=== PATIENT | male | born 1945 | race Caucasian/White ===

== ENCOUNTER 2018-09-17 08:50 | Day surgery (SDC) | payer OTHER, SELFPAY ==
[~2018-09-17] VITALS: Ht 175.3 cm; Wt 102.4 kg
[~2018-09-17 08:50] MED LIST: ALBUTEROL UPDRAFT; ASPI81CH PO; ATOR20 PO; CARB200 PO; DOCU100 PO; EYE VITAMIN PO; FISH1000 PO; Flonase 0.05% N16 GM; GABA600 PO; LISI5 PO; Naprosyn250 MG PO; Norco 5-325 Ta1 EACH PO; TIOT18 INH
--- NOTE | 2018-09-17 09:27 | NUR ---
History, Chart, Medications and Allergies reviewed before start of procedure. Patient confirms NPO status and agrees with scheduled surgery. Patient reports completing Chlorhexadine shower X2 prior to admission to hospital. Lungs clear T/O to Auscultation. Pre-Op teaching done. Pt verbalizes understanding.
[2018-09-17] MEDS ORDERED: INCRUSE ELLI62.5 MCG INH (09:43)
[2018-09-17] MEDS ORDERED: LORATADINE10 MG PO (09:43)
--- NOTE | 2018-09-17 10:05 | NUR ---
TRACKER CARD EXPLAINED TO , OPPORTUNITY FOR QUESTIONS PROVIDED. PATIENT'S IS EXELLENT AT LIP READING AND HAS DEMONSTRATED VERY GOOD UNDERSTANDING ALONG THE WHOLE ADMIT PROCESS. STATES THAT PATIENT AND SHE DO NOT LIKE THE OFF SITE INTERPRETERS VIA LAPTOP AND THE PATIENT PREFERS THAT WE DO NOT USE IT. PATIENT ABLE TO COMMUNICATE VERY WELL WITH HER SPOUSE AND INTERACTION HAS BEEN EASY AND COMMUNICATION WITHOUT DIFFICULTIES.
--- NOTE | 2018-09-17 10:23 | NUR ---
PATIENT UP FOR UNMEASURED VOID WITH RN AND ASSISTANCE VIA WC.
--- NOTE | 2018-09-17 12:01 | NUR ---
09/17/18 1201 Pricilla Marte PT USED RESTOOM PRIOR TO ENTERING OR.
[2018-09-17 15:05] LABS: PCO2 Arterial 61.4 mmHg (35-45); PO2 Arterial 102 mmHg (80-100)
--- NOTE | 2018-09-17 16:40 | NUR ---
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
--- NOTE | 2018-09-17 17:12 | NUR ---
PT TO PACU 1425 FT PLACED PT RESP SHALLOW AT 16 NON REPONSIVE TO VERBAL OR TOUCH STIMULI 1443 BIOX DROPS TO 88 RESP MORE SHALLOW STILL AT [address] TERRY NEW ORDERS TO CALL RT FOR BI-PAP . 1448 BI PAP STARTED . RT CALLED WITH CRITICAL PH RESULT OF 7.2 DR TERRY AWARE NO NEW ORDERS 1500 PT STARTED MOVING ABOUT LIFTED HEAD OFF PILLOW THEN AT 1520 PT WITH SHAKE AND NOD OF HEAD ANSWERED SEVERAL QUESTIONS I HAD WRITTEN A NOTE BIPAP OFF AT 15 30 . PT ON 2 L N/C BIOX AT 93 RESP E/U SEE FLOWSHEET
--- NOTE | 2018-09-17 17:45 | NUR ---
PT HAD FEW BITES OF FOOD HAD SOME MILD NAUSEA JENNIFER LIQUIDS ONLY OFFERED NAUSEA MEDS PT DECLINED
[2018-09-17] MEDS ORDERED: CARB200 PO (18:15)
--- NOTE | 2018-09-17 18:30 | NUR ---
PT OOB TO BSC TO TRY AND VOID UNABLE TO GO PVR 71 ML HELPED PT BACK INTO BED WILL TRY AGAIN IN A FEW HOURS
[2018-09-18 05:12] LABS: BASOPHILS ABSOLUTE AUTO 0.02 K/mm3 (0.00-0.23); BASOPHILS PERCENT AUTO 0 % (0-2); EOSINOPHILS ABSOLUTE AUTO 0.06 K/mm3 (0.00-0.68); EOSINOPHILS PERCENT AUTO 1 % (0-6); Hematocrit 36.3 % (37.0-53.0); Hemoglobin 12.3 g/dL (13.5-17.5); IMMATURE GRAN ABSOLUTE AUTO 0.03 K/mm3 (0.00-0.10); IMMATURE GRAN PERCENT AUTO 0 % (0-1); LYMPHOCYTES PERCENT AUTO 15 % (21-46); MONOCYTES ABSOLUTE AUTO 0.69 K/mm3 (0.16-1.47); MONOCYTES PERCENT AUTO 7 % (4-13); Mean Corpuscular HGB 32.6 pg (26.0-34.0); Mean Corpuscular HGB Conc 33.9 g/dL (31.5-36.5); Mean Corpuscular Volume 96 fL (80-100); Mean Platelet Volume 9.3 fL (9.1-12.4); NEUTROPHILS PERCENT AUTO 77 % (41-73); Platelet Count 185 K/mm3 (150-400); RDW Coefficient Variation 12.4 % (11.7-14.2); RDW Standard Deviation 43.8 fL (35.1-46.3); Red Blood Cell Count 3.77 M/mm3 (4.30-5.90)
[2018-09-18 05:33] LABS: Anion Gap 6 mmol/L (6-16); Blood Urea Nitrogen 13 mg/dL (8-24); Bun/Creatinine Ratio 13.8 (12.0-20.0); CO2, Blood 26 mmol/L (21-32); Calcium, Blood 7.7 mg/dL (8.5-10.1); Chloride, Blood 97 mmol/L (98-108); Creatinine, Blood 0.94 mg/dL (0.60-1.20); Glomerular Filtration Rate >60 (60-); Glucose, Blood 104 mg/dL (70-99); Magnesium, Blood 1.7 mg/dL (1.6-2.4); Potassium, Blood 4.6 mmol/L (3.5-5.5); Sodium, Blood 129 mmol/L (136-145)
[2018-09-18] MEDS ORDERED: OXYC5 PO (15:42)
[2018-09-18] MEDS ORDERED: ASPI325 PO (15:46)
--- NOTE | 2018-09-18 18:30 | NUR ---
BLADDER SCAN 160, PT REP PELVIC PAIN/PRESSURE AND REQ STRAIGHT CATH. STRAIGHT CATH 350 MLS URINE OUTPUT. SAMPLE SENT FOR UTI
[2018-09-18 18:49] LABS: Source, Urine Catheter
[2018-09-18 18:52] LABS: Bilirubin, Urine Neg (Neg); Blood, Urine Neg (Neg); Glucose Qualitative, Urine Neg (Neg); Ketones, Urine 1+ (Neg); Leukocyte Esterase, Urine 1+ (Neg); Nitrite, Urine Neg (Neg); Protein, Urine 2+ (Neg); Specific Gravity, Urine 1.015 (1.003-1.022); Urobilinogen, Urine 1+ (Normal)
[2018-09-18 19:07] LABS: Appearance, Urine Clear (Clear); Color, Urine Yellow (P-Yellow)
[2018-09-18 19:08] LABS: Red Blood Cells, Urine 0-2 /hpf (0-2)
[2018-09-18 19:09] LABS: Bacteria Few /hpf; Squamous Epithelial Cells Rare /hpf (Few)
--- NOTE | 2018-09-18 19:50 | NUR ---
SHIFT SUMMARY PT A&OX4, HEARING IMPAIRED, WHITE BOARD AT BEDSIDE FOR COMMUNICATION WHEN IS NOT AT BEDSIDE. IS ALSO HEARING IMPAIRED BUT CAN READ LIPS AND COMMUNICATE VERBALLY. POD#1 R TSA AQUACEL CDI, IMMOBILIZER IN PLACE. PAIN MANAGED PER EMAR. JENNIFER PO, DENIES N&V. AMB 2 PP W/GB TO BRP AND IN ROOM. UNABLE TO VOID; BLADDER SCANNED X2, AMB TO BRP TO TRY TO VOID X4, STRAIGHT CATH 350 MLS AT 1830; URINE SAMPLE SENT. REPORT GIVEN TO JERI RODRIGUEZ.
--- NOTE | 2018-09-19 02:03 | NUR ---
RN NOTIFIED OF BLADDER SCAN AMOUNT AND THAT PATIENT COULDNT VOID. GOT HIM UP TO A BSC AND HAND HIM STAND AT BEDSIDE WITH URINAL. GAVE WARM COMPRESS ON BLADDER.
--- NOTE | 2018-09-19 04:44 | NUR ---
SHIFT SUMMARY: PT POD #2 FOR RT TSA. A&O X4, VS WNL. PT HEARING IMPAIRED, USING WHITEBOARD LOCATED ON BEDSIDE TABLE TO COMMUNICATE. PT DENIES N/T IN EXTREMITIES AND CAN WIGGLE FINGERS. CAP REFILL WNL. RIGHT SHOULDER IMMOBILZER IN PLACE. PAIN MANAGED WITH TORADOL, TYLENOL AND 5MG OXY PER EMAR. PT UNABLE TO VOID T/O SHIFT, DESPITE ATTEMPTING IN URINAL MULTIPLE TIMES. BLADDER SCAN SHOWED >200. PER ORDERS, STRAIGHT CATHETER INSERTED AT APPROX 0400 WITH A TOTAL OF 400 ML OUT. FLUIDS INFUSING. WHEEZING HEARD UPON AUSCULTATION; O2 SATS STABLE ON RA. PT DENIES FEELING SOB.
--- NOTE | 2018-09-19 12:10 | NUR ---
BLADDER SCAN 222
[2018-09-19 19:04] LABS: Anion Gap 7 mmol/L (6-16); Blood Urea Nitrogen 19 mg/dL (8-24); Bun/Creatinine Ratio 18.3 (12.0-20.0); CO2, Blood 24 mmol/L (21-32); Chloride, Blood 92 mmol/L (98-108); Creatinine, Blood 1.04 mg/dL (0.60-1.20); Glomerular Filtration Rate >60 (60-); Glucose, Blood 101 mg/dL (70-99); Potassium, Blood 4.5 mmol/L (3.5-5.5); Sodium, Blood 123 mmol/L (136-145)
--- NOTE | 2018-09-19 19:42 | NUR ---
SHIFT SUMMARY PT A&OX4, VSS, POD2 R TSA, AQUACEL CDI, IMMOBILIZER ON, NWB, CIRC CHKS WNL. PT AND HEARING IMPAIRED. WHITE BOARD TO COMMUNICATE WITH PT; CAN READ LIPS AND WILL SIGN TO PT. BOTH ARE PLEASANT AND COOPERATIVE. PT VOIDED 850 AND HAD 2 SMALL BMS TODAY. AMB 2 MOD ASSIST W/GB TO BRP. JENNIFER PO, DENIES N&V. REPORT GIVEN TO JERI RODRIGUEZ
--- NOTE | 2018-09-19 20:30 | NUR ---
PT GIVEN OPTION OF ACCESSING AREA OPERATIONS DIRECTOR USING COMPUTER. PT AGREEING. WILL LOCATE AREA OPERATIONS DIRECTOR AND USE FOR FURTHER COMMUNICATION.
--- NOTE | 2018-09-19 22:25 | NUR ---
UNABLE TO CONNECT TO WIFI FOR FURNACE REPAIRER HELPER. CALIBRATION SPECIALIST IN ROOM ATTEMPTING TO FIX IT. PT INFORMED OF SITUATION. USING WHITEBOARD TO COMMUNICATE AT THIS TIME.
--- NOTE | 2018-09-20 06:08 | NUR ---
PT WHEEZING AND REPORTS FEELING SOB AFTER GETTING FROM BATHROOM TO CHAIR. RESPIRATORY THERAPY NOTIFIED. PT AGREES TO BREATHING TX.
--- NOTE | 2018-09-20 06:09 | NUR ---
SHIFT SUMMARY: PT POD #3 FOR RT TSA. A&O X4, VS WNL. PAIN MANAGED WITH TORADOL T/O SHIFT. OOB TO BSC AND BRP WITH 1 ASSIST AND GB. PT ENCOURAGED TO VOID FREQ. VOID X1 WITH A TOTAL OF 300 ML OUTPUT FOR SHIFT. WHEEZING NOTED UPON EXERTION. RESPIRATORY TX PRN. USING WHITEBOARD TO COMMUNICATE WITH PT INTERPERTER VIA LAPTOP IS CURRENTLY UNAVAILABLE D/T LACK OF INTERNET CONNECTION. PT IS AWARE. PT CURRENTLY SITTING IN CHAIR AND REPORTS FEELING COMFORTABLE. CALL LIGHT IN REACH.
--- NOTE | 2018-09-20 11:58 | NUR ---
PATIENT HAS BEEN CLEARED FROM DR. CHRISTIAN'S STANDPOINT. CURRENTLY WE ARE AWAITING DR. CORCORAN TO ASSESS THE PATIENT AND CLEAR HIM FROM ORTHOPEDIC STANDPOINT. PATIENT'S FAMILY AWARE THAT WE ARE WAITING FOR THE DOCTOR AT THIS TIME.
[2018-09-20] MEDS ORDERED: TAMS.4ER PO (16:38)
[2018-09-20] MEDS ORDERED: ALBU3IS INH (16:39)
--- NOTE | 2018-09-20 17:26 | NUR ---
DISCHARGE SUMMARY PATIENT INSTRUCTIONS GIVEN TO THE PATIENT. HIS MEDICATIONS WERE SENT WITH HIM. ALL PRINT OUTS EXPLAINED TO AND PATIENT. NO ACUTE CONCERNS AT TIME OF DISCHARGE. EXPLAINED THE PATIENT'S WEIGHT BEARING STATUS AND NOT TO LIFT.
== END 2018-09-20 17:17 | disposition home or self-care (01) ==
LOC: ORSCMMR 08:50 → EDSTATUS 10:45 → PRE IP 10:45 → SURS 16:27 → ORSCMMR 09-20 17:17
PROVIDERS: Internal Medicine; Orthopaedic Surgery
PROC: 0RRJ0J6 Replacement of Right Shoulder Joint with Synthetic Substitute, Humeral Surface, Open Approach (ICD-10-PCS; principal; 2018-09-17 10:45)
DX: M19.011 Primary osteoarthritis, right shoulder (principal); M75.121 Complete rotator cuff tear or rupture of right shoulder, not specified as traumatic; I10 Essential (primary) hypertension; J44.9 Chronic obstructive pulmonary disease, unspecified; E66.9 Obesity, unspecified; Z68.33 Body mass index [BMI] 33.0-33.9, adult; Z79.899 Other long term (current) drug therapy; Z79.82 Long term (current) use of aspirin
CPT/HCPCS: 36415; 36600; 51701; 73030; 76770; 80048; 81001; 82803; 83735; 83880; 85025; 87086; 88300; 94640; 94660; 94760; 97110; 97116; 97161; 97165; 97530; 97535; C1776; J0171; J0690; J0735; J1100; J1885; J1940; J2250; J2405; J2704; J2710; J2795; J3010; J7030; J7120

== ENCOUNTER 2019-02-12 14:35 | Emergency (ER) | payer OTHER ==
[~2019-02-12] VITALS: Ht 175.3 cm; Wt 102.1 kg
[~2019-02-12 14:35] MED LIST changes: +ALBU3IS INH; +ASPI325 PO; +INCRUSE ELLI62.5 MCG INH; +LORATADINE10 MG PO; +OXYC5 PO; +TAMS.4ER PO
== END 2019-02-12 18:27 | disposition home or self-care (01) ==
LOC: ER 14:35
DX: L89.312 Pressure ulcer of right buttock, stage 2 (principal); Z79.82 Long term (current) use of aspirin; Z79.899 Other long term (current) drug therapy; Z87.891 Personal history of nicotine dependence
CPT/HCPCS: 90471; 90714; 99283-25

== ENCOUNTER 2019-07-09 06:20 | Day surgery (SDC) | payer OTHER ==
[~2019-07-09] VITALS: Ht 175.3 cm; Wt 100.5 kg
--- NOTE | 2019-07-09 07:19 | NUR ---
07/09/19 0719 Latoya Haile CALL LIGHT WITHIN REACH. FAMILY AND FIELD ARTILLERY OFFICER AT BEDSIDE.
== END 2019-07-09 09:59 | disposition home or self-care (01) ==
LOC: ORSCSDS 06:20
DX: G56.01 Carpal tunnel syndrome, right upper limb (principal); G56.21 Lesion of ulnar nerve, right upper limb; I10 Essential (primary) hypertension; Z87.891 Personal history of nicotine dependence; J45.909 Unspecified asthma, uncomplicated; Z79.899 Other long term (current) drug therapy; Z79.82 Long term (current) use of aspirin
CPT/HCPCS: 93005; 93010; J0171; J0690; J1100; J1885; J2250; J2405; J2704; J3010; J7120

== ENCOUNTER 2019-10-19 22:49 | Emergency (ER) | payer OTHER ==
[~2019-10-19] VITALS: Ht 175.3 cm; Wt 102.1 kg
[~2019-10-19 22:49] MED LIST changes: -ASPI325 PO; +ASPIR 8181 M1 PO
[2019-10-19] MEDS ORDERED: FURO20 (23:06)
[2019-10-19 23:16] LABS: BASOPHILS ABSOLUTE AUTO 0.09 K/mm3 (0.00-0.23); BASOPHILS PERCENT AUTO 1 % (0-2); EOSINOPHILS ABSOLUTE AUTO 0.59 K/mm3 (0.00-0.68); EOSINOPHILS PERCENT AUTO 6 % (0-6); Hematocrit 37.5 % (37.0-53.0); Hemoglobin 12.7 g/dL (13.5-17.5); IMMATURE GRAN ABSOLUTE AUTO 0.07 K/mm3 (0.00-0.10); IMMATURE GRAN PERCENT AUTO 1 % (0-1); LYMPHOCYTES ABSOLUTE AUTO 2.86 K/mm3 (0.84-5.20); LYMPHOCYTES PERCENT AUTO 29 % (21-46); MONOCYTES ABSOLUTE AUTO 1.08 K/mm3 (0.16-1.47); MONOCYTES PERCENT AUTO 11 % (4-13); Mean Corpuscular HGB 32.2 pg (26.0-34.0); Mean Corpuscular HGB Conc 33.9 g/dL (31.5-36.5); Mean Corpuscular Volume 95 fL (80-100); NEUTROPHILS ABSOLUTE AUTO 5.05 K/mm3 (1.96-9.15); NEUTROPHILS PERCENT AUTO 52 % (41-73); Platelet Count 175 K/mm3 (150-400); RDW Coefficient Variation 12.5 % (11.7-14.2); RDW Standard Deviation 43.4 fL (35.1-46.3); Red Blood Cell Count 3.95 M/mm3 (4.30-5.90); White Blood Cell Count 9.74 K/mm3 (4.00-11.30)
[2019-10-19 23:34] LABS: Alanine Aminotransfer (ALT/SGP 22 U/L (12-78); Albumin, Blood 3.4 g/dL (3.4-5.0); Albumin/Globulin Ratio 1.1 (0.8-1.8); Alk Phos 164 U/L (50-136); Anion Gap 9 mmol/L (6-16); Aspartate Aminotrans (AST/SGOT 15 U/L (12-37); Bilirubin, Total 0.4 mg/dL (0.1-1.0); Blood Urea Nitrogen 14 mg/dL (8-24); Bun/Creatinine Ratio 14.1 (12.0-20.0); CO2, Blood 23 mmol/L (21-32); Calcium, Blood 7.6 mg/dL (8.5-10.1); Chloride, Blood 99 mmol/L (98-108); Globulin, Blood 3.2 g/dL (2.2-4.0); Glomerular Filtration Rate >60 (60-); Glucose, Blood 97 mg/dL (70-99); Potassium, Blood 3.7 mmol/L (3.5-5.5); Sodium, Blood 131 mmol/L (136-145); Total Protein, Blood 6.6 g/dL (6.4-8.2)
[2019-10-20 00:02] LABS: Troponin I <0.015 ng/mL (0.000-0.040)
== END 2019-10-20 01:46 | disposition home or self-care (01) ==
LOC: ER 22:49
PROVIDERS: Emergency Medicine
DX: R42 Dizziness and giddiness (principal); Z87.891 Personal history of nicotine dependence; Z79.899 Other long term (current) drug therapy; Z79.51 Long term (current) use of inhaled steroids
CPT/HCPCS: 80053; 84484; 85025; 93005; 93010; 99284-25; J7120

== ENCOUNTER 2020-02-02 08:59 | Emergency (ER) | payer OTHER ==
[~2020-02-02] VITALS: Ht 175.3 cm; Wt 99.8 kg
[~2020-02-02 08:59] MED LIST changes: +FURO20
[2020-02-02 09:40] LABS: BASOPHILS ABSOLUTE AUTO 0.04 K/mm3 (0.00-0.23); BASOPHILS PERCENT AUTO 0 % (0-2); EOSINOPHILS ABSOLUTE AUTO 0.02 K/mm3 (0.00-0.68); EOSINOPHILS PERCENT AUTO 0 % (0-6); Hematocrit 40.4 % (37.0-53.0); Hemoglobin 13.9 g/dL (13.5-17.5); IMMATURE GRAN ABSOLUTE AUTO 0.08 K/mm3 (0.00-0.10); IMMATURE GRAN PERCENT AUTO 1 % (0-1); LYMPHOCYTES ABSOLUTE AUTO 0.58 K/mm3 (0.84-5.20); LYMPHOCYTES PERCENT AUTO 4 % (21-46); MONOCYTES ABSOLUTE AUTO 1.44 K/mm3 (0.16-1.47); MONOCYTES PERCENT AUTO 9 % (4-13); Mean Corpuscular HGB Conc 34.4 g/dL (31.5-36.5); Mean Corpuscular Volume 93 fL (80-100); Mean Platelet Volume 8.8 fL (9.1-12.4); NEUTROPHILS ABSOLUTE AUTO 14.18 K/mm3 (1.96-9.15); NEUTROPHILS PERCENT AUTO 87 % (41-73); Platelet Count 179 K/mm3 (150-400); RDW Coefficient Variation 12.3 % (11.7-14.2); RDW Standard Deviation 42.5 fL (35.1-46.3); Red Blood Cell Count 4.34 M/mm3 (4.30-5.90); White Blood Cell Count 16.34 K/mm3 (4.00-11.30)
[2020-02-02 10:29] LABS: Alanine Aminotransfer (ALT/SGP 27 U/L (12-78); Albumin, Blood 3.3 g/dL (3.4-5.0); Albumin/Globulin Ratio 0.7 (0.8-1.8); Alk Phos 172 U/L (50-136); Anion Gap 8 mmol/L (6-16); Aspartate Aminotrans (AST/SGOT 17 U/L (12-37); Bilirubin, Total 0.9 mg/dL (0.1-1.0); Blood Urea Nitrogen 12 mg/dL (8-24); Bun/Creatinine Ratio 13.3 (12.0-20.0); CO2, Blood 26 mmol/L (21-32); Calcium, Blood 8.4 mg/dL (8.5-10.1); Chloride, Blood 87 mmol/L (98-108); Globulin, Blood 4.7 g/dL (2.2-4.0); Glomerular Filtration Rate >60 (60-); Glucose, Blood 99 mg/dL (70-99); Potassium, Blood 4.8 mmol/L (3.5-5.5); Sodium, Blood 121 mmol/L (136-145)
[2020-02-02 10:30] LABS: Troponin I <0.015 ng/mL (0.000-0.040)
[2020-02-02 10:39] LABS: Source, Urine Clean Catch
[2020-02-02 10:51] LABS: Bilirubin, Urine Neg (Neg); Blood, Urine Neg (Neg); Glucose Qualitative, Urine Neg (Neg); Ketones, Urine 3+ (Neg); Leukocyte Esterase, Urine Neg (Neg); Nitrite, Urine Neg (Neg); Protein, Urine 1+ (Neg); Urobilinogen, Urine NORM (Normal)
[2020-02-02 10:54] LABS: Appearance, Urine Clear (Clear); Color, Urine Yellow (P-Yellow)
== END 2020-02-02 12:21 | disposition home or self-care (01) ==
LOC: ER 08:59
PROVIDERS: Physician Assistant
DX: R53.1 Weakness (principal); Z91.81 History of falling; J44.9 Chronic obstructive pulmonary disease, unspecified; I10 Essential (primary) hypertension; E78.00 Pure hypercholesterolemia, unspecified; G40.909 Epilepsy, unspecified, not intractable, without status epilepticus; H91.90 Unspecified hearing loss, unspecified ear; Z79.82 Long term (current) use of aspirin; Z79.899 Other long term (current) drug therapy; Z87.891 Personal history of nicotine dependence
CPT/HCPCS: 36415; 71045; 74177; 80053; 84484; 85025; 93005; 93010; 96360; 99285-25; J7030; Q9967

== ENCOUNTER 2021-07-16 16:51 | Emergency (ER) | payer OTHER ==
[~2021-07-16] VITALS: Ht 175.3 cm; Wt 102.1 kg
[~2021-07-16 16:51] MED LIST changes: +ALBU2.5V5 INH; +ASCO500 PO; -EYE VITAMIN PO; +LEVE500 PO; +Loratadine10 MG PO; +METAMUCIL POWD575 GM PO; +MULTI VITAMIN1 EACH PO; +OMEP20ER PO; +POLY500 PO; +POTA10T PO; +UMECLIDINIUM INH
[2021-07-16 17:27] LABS: BASOPHILS ABSOLUTE AUTO 0.04 K/mm3 (0.00-0.23); BASOPHILS PERCENT AUTO 1 % (0-2); EOSINOPHILS ABSOLUTE AUTO 0.08 K/mm3 (0.00-0.68); EOSINOPHILS PERCENT AUTO 1 % (0-6); Hematocrit 41.1 % (37.0-53.0); Hemoglobin 14.2 g/dL (13.5-17.5); IMMATURE GRAN ABSOLUTE AUTO 0.07 K/mm3 (0.00-0.10); IMMATURE GRAN PERCENT AUTO 1 % (0-1); LYMPHOCYTES PERCENT AUTO 5 % (21-46); MONOCYTES ABSOLUTE AUTO 1.01 K/mm3 (0.16-1.47); MONOCYTES PERCENT AUTO 12 % (4-13); Mean Corpuscular HGB 33.2 pg (26.0-34.0); Mean Corpuscular HGB Conc 34.5 g/dL (31.5-36.5); Mean Corpuscular Volume 96 fL (80-100); Mean Platelet Volume 9.2 fL (9.1-12.4); NEUTROPHILS ABSOLUTE AUTO 7.14 K/mm3 (1.96-9.15); NEUTROPHILS PERCENT AUTO 82 % (41-73); Platelet Count 167 K/mm3 (150-400); RDW Coefficient Variation 12.8 % (11.7-14.2); RDW Standard Deviation 45.2 fL (35.1-46.3); Red Blood Cell Count 4.28 M/mm3 (4.30-5.90); White Blood Cell Count 8.74 K/mm3 (4.00-11.30)
[2021-07-16 17:45] LABS: Source, Urine Clean Catch
[2021-07-16 17:56] LABS: Bun/Creatinine Ratio 12.3 (12.0-20.0); Calcium, Blood 8.8 mg/dL (8.5-10.1); Creatinine, Blood 1.22 mg/dL (0.60-1.20); Potassium, Blood 4.5 mmol/L (3.5-5.5)
[2021-07-16] MEDS ORDERED: GABA300 PO (18:01)
[2021-07-16] MEDS ORDERED: BREO ELLIPTA 11 EAC1 INH (18:02)
[2021-07-16 18:05] LABS: Appearance, Urine Clear (Clear); Bilirubin, Urine Neg (Neg); Blood, Urine Neg (Neg); Color, Urine Yellow (P-Yellow); Glucose Qualitative, Urine Neg (Neg); Ketones, Urine Neg (Neg); Leukocyte Esterase, Urine Neg (Neg); Nitrite, Urine Neg (Neg); Protein, Urine Neg (Neg); Urobilinogen, Urine NORM (Normal); pH, Urine 6.5 (5.0-8.0)
[2021-07-16 18:34] LABS: Influenza A, PCR NEGATIVE (NEGATIVE); Influenza B, PCR NEGATIVE (NEGATIVE); Resp Syncytial Virus, PCR NEGATIVE (NEGATIVE)
[2021-07-16 18:40] LABS: SARS-Cov-2 (COVID-19) PCR, MMC POSITIVE (NEGATIVE)
== END 2021-07-16 20:10 | disposition home or self-care (01) ==
LOC: ER 16:51
PROVIDERS: Student in an Organized Health Care Education/Training Program
DX: U07.1 COVID-19 (principal); Z79.899 Other long term (current) drug therapy; Z79.82 Long term (current) use of aspirin; J44.9 Chronic obstructive pulmonary disease, unspecified; I10 Essential (primary) hypertension; E78.00 Pure hypercholesterolemia, unspecified; G40.909 Epilepsy, unspecified, not intractable, without status epilepticus; Z87.891 Personal history of nicotine dependence
CPT/HCPCS: 0241U; 80048; 81003; 85025; 93005; 93010; 99284-25; J7030

== ENCOUNTER 2021-07-18 16:55 | Observation (INO) | payer OTHER ==
[~2021-07-18] VITALS: Ht 175.3 cm; Wt 113.4 kg
[~2021-07-18 16:55] MED LIST changes: -ALBU2.5V5 INH; +ALBU90OI INH; +BREO ELLIPTA 11 EAC1 INH; +GABA300 PO; +LISI20 PO; -LISI5 PO
[2021-07-18 17:34] LABS: Source, Urine Straight Cath
[2021-07-18 17:47] LABS: Appearance, Urine Hazy (Clear); Bilirubin, Urine Neg (Neg); Blood, Urine Neg (Neg); Color, Urine Amber (P-Yellow); Glucose Qualitative, Urine Neg (Neg); Ketones, Urine Neg (Neg); Leukocyte Esterase, Urine Neg (Neg); Nitrite, Urine Neg (Neg); Protein, Urine 1+ (Neg); Urobilinogen, Urine NORM (Normal)
[2021-07-18 17:59] LABS: BASOPHILS ABSOLUTE AUTO 0.04 K/mm3 (0.00-0.23); BASOPHILS PERCENT AUTO 1 % (0-2); EOSINOPHILS ABSOLUTE AUTO 0.01 K/mm3 (0.00-0.68); EOSINOPHILS PERCENT AUTO 0 % (0-6); Hemoglobin 13.6 g/dL (13.5-17.5); IMMATURE GRAN ABSOLUTE AUTO 0.06 K/mm3 (0.00-0.10); IMMATURE GRAN PERCENT AUTO 1 % (0-1); LYMPHOCYTES ABSOLUTE AUTO 1.42 K/mm3 (0.84-5.20); LYMPHOCYTES PERCENT AUTO 17 % (21-46); MONOCYTES ABSOLUTE AUTO 0.89 K/mm3 (0.16-1.47); MONOCYTES PERCENT AUTO 11 % (4-13); Mean Corpuscular HGB 32.9 pg (26.0-34.0); Mean Corpuscular HGB Conc 33.2 g/dL (31.5-36.5); Mean Corpuscular Volume 99 fL (80-100); Mean Platelet Volume 9.4 fL (9.1-12.4); NEUTROPHILS ABSOLUTE AUTO 5.74 K/mm3 (1.96-9.15); NEUTROPHILS PERCENT AUTO 70 % (41-73); Platelet Count 152 K/mm3 (150-400); RDW Coefficient Variation 13.3 % (11.7-14.2); RDW Standard Deviation 49.1 fL (35.1-46.3); Red Blood Cell Count 4.13 M/mm3 (4.30-5.90); White Blood Cell Count 8.16 K/mm3 (4.00-11.30)
[2021-07-18 18:04] LABS: Bacteria Rare /hpf; Mucus Mod (0-Heavy); Red Blood Cells, Urine 0-2 /hpf (0-2); Squamous Epithelial Cells Rare /hpf (Few); White Blood Cells, Urine 0-2 /hpf (0-5)
[2021-07-18 18:05] LABS: Granular Casts 0-2 /lpf (0); Hyaline Casts 0-2 /lpf (0-2)
[2021-07-18 18:21] LABS: Albumin, Blood 3.5 g/dL (3.4-5.0); Bilirubin, Total 0.5 mg/dL (0.1-1.0); Bun/Creatinine Ratio 11.4 (12.0-20.0); Calcium, Blood 8.3 mg/dL (8.5-10.1); Creatinine, Blood 2.63 mg/dL (0.60-1.20); Globulin, Blood 3.6 g/dL (2.2-4.0); Potassium, Blood 4.3 mmol/L (3.5-5.5); Total Protein, Blood 7.1 g/dL (6.4-8.2)
--- NOTE | 2021-07-19 03:24 | NUR ---
Received patient from ER, came in for worsening SOB with COVID 19. Admitted on observation on the floor with referral for social media marketing manager for placement. Patient Alert, at room air. He was able to sleep throughout the night. Patient is deaf and mute. Unable to communicate. Meds reconciliation imcomplete. We will continue to monitor patient for any acute changes.
[2021-07-19 04:35] LABS: BASOPHILS ABSOLUTE AUTO 0.02 K/mm3 (0.00-0.23); BASOPHILS PERCENT AUTO 0 % (0-2); EOSINOPHILS ABSOLUTE AUTO 0.01 K/mm3 (0.00-0.68); EOSINOPHILS PERCENT AUTO 0 % (0-6); Hematocrit 34.4 % (37.0-53.0); Hemoglobin 11.9 g/dL (13.5-17.5); IMMATURE GRAN ABSOLUTE AUTO 0.04 K/mm3 (0.00-0.10); IMMATURE GRAN PERCENT AUTO 1 % (0-1); LYMPHOCYTES ABSOLUTE AUTO 1.35 K/mm3 (0.84-5.20); LYMPHOCYTES PERCENT AUTO 18 % (21-46); MONOCYTES ABSOLUTE AUTO 0.63 K/mm3 (0.16-1.47); MONOCYTES PERCENT AUTO 9 % (4-13); Mean Corpuscular HGB 33.5 pg (26.0-34.0); Mean Corpuscular HGB Conc 34.6 g/dL (31.5-36.5); Mean Corpuscular Volume 97 fL (80-100); Mean Platelet Volume 9.1 fL (9.1-12.4); NEUTROPHILS ABSOLUTE AUTO 5.27 K/mm3 (1.96-9.15); NEUTROPHILS PERCENT AUTO 72 % (41-73); Platelet Count 117 K/mm3 (150-400); RDW Coefficient Variation 13.1 % (11.7-14.2); RDW Standard Deviation 47.2 fL (35.1-46.3); Red Blood Cell Count 3.55 M/mm3 (4.30-5.90); White Blood Cell Count 7.32 K/mm3 (4.00-11.30)
[2021-07-19 04:53] LABS: Calcium, Blood 7.7 mg/dL (8.5-10.1); Creatinine, Blood 1.44 mg/dL (0.60-1.20); Potassium, Blood 3.7 mmol/L (3.5-5.5)
[2021-07-19] MEDS ORDERED: Rapaflo8 MG PO (12:08)
[2021-07-19] MEDS ORDERED: MEMA10 PO (12:10)
[2021-07-19] MEDS ORDERED: FURO40 PO (12:35)
--- NOTE | 2021-07-19 17:21 | NUR ---
PATIENT ADMITTED FOR SOB, AND IS COVID POSTIVE. HE IS DEAF AND MUTE AND A COMMUNICATION BOARD AND SIGN LANGUAGE USED TO COMMUNICATE WITH PATIENT. LUNGS CLEAR/DIM, ON RA. WORKED WITH PT/OT TODAY. VSS. AT BEDSIDE FOR PART OF THE DAY TO HELP INTERPRET. SKIN INTACT. DENIES ANY PAIN. VERY PLEASANT AND COOPERATIVE WITH CARE. NO NEW CONCERNS THIS SHIFT.
[2021-07-20 06:37] LABS: BASOPHILS ABSOLUTE AUTO 0.02 K/mm3 (0.00-0.23); BASOPHILS PERCENT AUTO 0 % (0-2); EOSINOPHILS ABSOLUTE AUTO 0.14 K/mm3 (0.00-0.68); EOSINOPHILS PERCENT AUTO 3 % (0-6); Hematocrit 34.7 % (37.0-53.0); Hemoglobin 11.9 g/dL (13.5-17.5); IMMATURE GRAN ABSOLUTE AUTO 0.02 K/mm3 (0.00-0.10); IMMATURE GRAN PERCENT AUTO 0 % (0-1); LYMPHOCYTES ABSOLUTE AUTO 1.14 K/mm3 (0.84-5.20); LYMPHOCYTES PERCENT AUTO 21 % (21-46); MONOCYTES PERCENT AUTO 9 % (4-13); Mean Corpuscular HGB 33.2 pg (26.0-34.0); Mean Corpuscular HGB Conc 34.3 g/dL (31.5-36.5); Mean Corpuscular Volume 97 fL (80-100); Mean Platelet Volume 9.5 fL (9.1-12.4); NEUTROPHILS ABSOLUTE AUTO 3.53 K/mm3 (1.96-9.15); NEUTROPHILS PERCENT AUTO 66 % (41-73); Platelet Count 125 K/mm3 (150-400); RDW Coefficient Variation 12.8 % (11.7-14.2); RDW Standard Deviation 45.8 fL (35.1-46.3); Red Blood Cell Count 3.58 M/mm3 (4.30-5.90); White Blood Cell Count 5.35 K/mm3 (4.00-11.30)
[2021-07-20 07:06] LABS: Albumin, Blood 2.7 g/dL (3.4-5.0); Anion Gap 6 mmol/L (6-16); Blood Urea Nitrogen 13 mg/dL (8-24); Bun/Creatinine Ratio 15.8 (12.0-20.0); CO2, Blood 25 mmol/L (21-32); Calcium, Blood 7.8 mg/dL (8.5-10.1); Chloride, Blood 105 mmol/L (98-108); Creatinine, Blood 0.82 mg/dL (0.60-1.20); Glomerular Filtration Rate >60 (60-); Glucose, Blood 98 mg/dL (70-99); Phosphorus, Blood 2.2 mg/dL (2.5-4.9); Potassium, Blood 3.4 mmol/L (3.5-5.5); Sodium, Blood 136 mmol/L (136-145)
--- NOTE | 2021-07-20 17:50 | NUR ---
NO ACUTE CHANGES THIS SHIFT. PATIENT WORKED WITH PT/OT TODAY. UP WITH FWW AND 1 ASSIST TO CHAIR. RASH TO BUTTOCKS WITH SMALL OPEN SACRAL WOUND. BARRIER CREAM APPLIED. USING COMMUNICATION BOARD AND PEN AND PAPER TO COMMUNICATE. GOLF BALL MARKER WILL BE COMING AT SHIFT CHANGE TO ASSIST PATIENT. WATCH GUARD GATE WOULD LIKE TO KNOW WHEN IS HERE TOMORROW SO THAT THEY CAN TALK ABOUT DC PLANS. MACHINE BENDER WOULD BE HELPFUL DURING THIS CONVERSATION WELL.
--- NOTE | 2021-07-21 05:03 | NUR ---
SHIFT SUMMARY 76 YR M ADMITTED ON 07/18/21 FOR COVID. FULL CODE. ENHANCED DROPLET PRECAUTIONS. NO ACUTE CHANGES. PT WAS ABLE TO COMMUNICATE BY ANSWERING WRITTEN PROMPTS WITH GESTURES AND FACIAL EXPRESSIONS. HE HAS A SENSE OF HUMOR AND CAN BE VERY FUNNY. HIS BOTTOM IS STILL RED AND BARRIER CREAM WAS APPLIED THIS SHIFT. HE DENIES PAIN OR DISCOMFORT BUT HE HAD A GRIMACE ON HIS FACE WHEN HE GOT HIS LOVENOX INJECTION. HE SLEFT MOST OF THIS SHIFT BUT WAS COOPERATIVE IN HIS OWN CARE.
[2021-07-21 09:15] LABS: Albumin, Blood 2.7 g/dL (3.4-5.0); Anion Gap 4 mmol/L (6-16); Blood Urea Nitrogen 9 mg/dL (8-24); Bun/Creatinine Ratio 10.3 (12.0-20.0); CO2, Blood 28 mmol/L (21-32); Calcium, Blood 7.6 mg/dL (8.5-10.1); Chloride, Blood 104 mmol/L (98-108); Creatinine, Blood 0.87 mg/dL (0.60-1.20); Glomerular Filtration Rate >60 (60-); Glucose, Blood 101 mg/dL (70-99); Phosphorus, Blood 2.3 mg/dL (2.5-4.9); Potassium, Blood 3.8 mmol/L (3.5-5.5); Sodium, Blood 136 mmol/L (136-145)
--- NOTE | 2021-07-21 16:17 | NUR ---
PATIENT D/C'D TO [facility] VIA W/C TRANSPORT. REPORT CALLED TO JAYESH NURSE AT [facility]. PATIENT D/C'D WITH JI AND IT WILL REMAIN IN PLACE UNTIL UROLOGY APPOINTMENT. TOOK PATIENTS BELONGINGS AND THE REMAINDER OF THEM SENT WITH PRESSING MACHINE TENDER. PATIENT DENIES ANY FURTHER QUESTIONS OR CONCERNS.
--- NOTE | 2021-07-21 16:18 | NUR ---
Per Dr. Harrison discharge appropriate. Patient does not oppose discharge. Patient discharged to [facility] Facility: [facility]. ship scaler used to discuss discharge plan with patient. His was notified and was present during discharge. Date of discharge: 07/21/2021 Date of admission: 07/18/2021 Provisional diagnosis at time of admission: Acute Renal Failure Final Diagnosis at time of discharge: Acute Renal Failure Transportation provided by: [facility] contract services [facility] transport requested SNF Location: [address] [place] [address]/[phone] DME Ordered: None needed/patient has a walker and wheelchair Follow-ups needed: [facility] will contact patient/[facility] to schedule hospital follow-up visit. Reinforced need to attend follow-up with option of telehealth appointment. Provider/PCP: Dr. Mary Kate Roach When: WITHIN 1 WEEK Specialty: N/A When: N/A Confirmed numbers: Patient [phone] (text only) Indra [phone] (text only) Comment: Patient has a strong support network. Patient uses ASL; texted to explain importance of follow-up visit. [facility] will coordinate due to transportation scheduling. Discharge plan after [facility], patient to return home to residence with his . He has a caregiver five times a week.
== END 2021-07-21 16:19 ==
LOC: ER 16:55 → MEDS 16:56
PROVIDERS: Emergency Medicine; Family Medicine; Student in an Organized Health Care Education/Training Program; ADMIT Family Medicine
DX: N17.9 Acute kidney failure, unspecified (principal); R33.9 Retention of urine, unspecified; E87.6 Hypokalemia; E87.1 Hypo-osmolality and hyponatremia; U07.1 COVID-19; J44.9 Chronic obstructive pulmonary disease, unspecified; I10 Essential (primary) hypertension; G40.909 Epilepsy, unspecified, not intractable, without status epilepticus; G62.9 Polyneuropathy, unspecified; E78.5 Hyperlipidemia, unspecified; K21.9 Gastro-esophageal reflux disease without esophagitis; H91.90 Unspecified hearing loss, unspecified ear; R29.6 Repeated falls; Z86.61 Personal history of infections of the central nervous system; Z87.891 Personal history of nicotine dependence; Z91.81 History of falling
CPT/HCPCS: 36415; 51702; 51798; 76770; 80048; 80053; 80069; 81001; 83605; 85025; 94640; 94760; 96372; 97110; 97162; 97166; 97530; 99285-25; A9270; G0378; J1644; J3480; J7030

== ENCOUNTER 2021-07-25 13:31 | Inpatient (IN) | payer OTHER ==
[~2021-07-25] VITALS: Ht 185.4 cm; Wt 97.1 kg
[~2021-07-25 13:31] MED LIST changes: +FURO40 PO; -GABA600 PO; +MEMA10 PO; +Rapaflo8 MG PO
[2021-07-25 14:04] LABS: BASOPHILS ABSOLUTE AUTO 0.03 K/mm3 (0.00-0.23); BASOPHILS PERCENT AUTO 0 % (0-2); EOSINOPHILS ABSOLUTE AUTO 0.07 K/mm3 (0.00-0.68); EOSINOPHILS PERCENT AUTO 1 % (0-6); Hematocrit 38.3 % (37.0-53.0); Hemoglobin 13.1 g/dL (13.5-17.5); IMMATURE GRAN ABSOLUTE AUTO 0.13 K/mm3 (0.00-0.10); IMMATURE GRAN PERCENT AUTO 2 % (0-1); LYMPHOCYTES ABSOLUTE AUTO 1.29 K/mm3 (0.84-5.20); LYMPHOCYTES PERCENT AUTO 19 % (21-46); MONOCYTES ABSOLUTE AUTO 0.88 K/mm3 (0.16-1.47); MONOCYTES PERCENT AUTO 13 % (4-13); Mean Corpuscular HGB 33.1 pg (26.0-34.0); Mean Corpuscular HGB Conc 34.2 g/dL (31.5-36.5); Mean Corpuscular Volume 97 fL (80-100); Mean Platelet Volume 9.5 fL (9.1-12.4); NEUTROPHILS ABSOLUTE AUTO 4.59 K/mm3 (1.96-9.15); NEUTROPHILS PERCENT AUTO 66 % (41-73); Platelet Count 164 K/mm3 (150-400); RDW Coefficient Variation 12.7 % (11.7-14.2); Red Blood Cell Count 3.96 M/mm3 (4.30-5.90); White Blood Cell Count 6.99 K/mm3 (4.00-11.30)
[2021-07-25 14:22] LABS: Alanine Aminotransfer (ALT/SGP 73 U/L (12-78); Albumin, Blood 2.6 g/dL (3.4-5.0); Albumin/Globulin Ratio 0.7 (0.8-1.8); Alk Phos 112 U/L (50-136); Anion Gap 8 mmol/L (6-16); Aspartate Aminotrans (AST/SGOT 62 U/L (12-37); Bilirubin, Total 0.5 mg/dL (0.1-1.0); Blood Urea Nitrogen 19 mg/dL (8-24); Bun/Creatinine Ratio 19.8 (12.0-20.0); CO2, Blood 26 mmol/L (21-32); Calcium, Blood 8.3 mg/dL (8.5-10.1); Chloride, Blood 104 mmol/L (98-108); Creatinine, Blood 0.96 mg/dL (0.60-1.20); Globulin, Blood 3.8 g/dL (2.2-4.0); Glomerular Filtration Rate >60 (60-); Glucose, Blood 105 mg/dL (70-99); Potassium, Blood 3.3 mmol/L (3.5-5.5); Sodium, Blood 138 mmol/L (136-145); Total Protein, Blood 6.4 g/dL (6.4-8.2)
[2021-07-25 17:24] LABS: International Normalized Ratio 1.19; Prothrombin Time Results 12.4 Sec (9.7-11.5)
--- NOTE | 2021-07-25 19:25 | NUR ---
ADMISSION NOTE: PT IS NEW ADMIT, ARRIVES FROM ER APPROX 1825. PT A&O, DEAF AND ABLE TO COMMUNICATE USING HAND GESTURES/PAPER/COMMUNICATION BOARD. PT ARRIVES ON O2 VIA NC AT 2L/MIN, MAINTAINING O2 SATS >92%, COARSE LS. AFLUTTER ON MONITOR. PT ARRIVES WITH NS AND K+ INFUSING TO RAC. INDWELLING JI IN PLACE, DRAINING FRANCISCO COLORED URINE TO GRAVITY. PT ORIENTED TO ROOM, INDICATED VIA COMMUNICATION BOARD THAT HE WOULD PREFER TO REST. PT PROVIDED WITH CALL LIGHT. REPORT HAS BEEN GIVEN TO JENNIFER WITT TO ASSUME CARE OF PT.
--- NOTE | 2021-07-25 20:31 | NUR ---
CALL TO DR. MACK PT WITH ATRIAL FLUTTER ANBD SLOW VENTRICULAR RATE. RATE IS IN THE 50S - 60S WHILE AWAKE. DROPS INTO THE 40S-50S WHILE SLEEPING, WITH FREQUENT DIPS INTO THE 30S THAT IS NOT SUSTAINED. BLOOD PRESSURE IS SOFT, BUT IMPROVING FROM EARLIER IN THE DAY. CURRENT BP IS 92/57. PT IS AERT & ORIENTED, ENDORSES FEELING "VERY TIRED" AND WANTS TO REST. ALL CURRENT PRESCRIBED MEDICATIONS REVIEWED WITH DR. MACK, ORDERS RECEIVED TO CHECK SERUM THYROID LEVELS AND TO CONTINUE TO MONITOR PATIENT FOR ANY CHANGES IN MENTATION OR SUSTAINED DROPS IN HEART RATE.
--- NOTE | 2021-07-25 20:40 | NUR ---
[facility] JAYLIN [facility]ODRIGUEZ AT [facility] ([phone]) TO UPDATE FACILITY ON DECISION TO ADMIT PATIENT WITH DIAGNOSIS OF ATRIUAL FLUTTER WITH SLOW VENTRICULAR RATE. CURRENT PLAN IS FOR STAY OF AT LEAST 2 MIDNIGHTS. PER MY REQUEST, JAYLIN REVIEWED PATIENT'S HEART RATE SINCE HIS ADMISSION TO [facility] ON 07/21/21 AND REPORTS THAT RATES WERE IN THE 60S-80S. NON HISTORY OF ATRIAL FLUTTER IS NOTED IN [facility]'S DOCUMENTATION OF PATIENT HISTORY. RETURNED CALL TO PATIENT['S VIA AMBULANCE DRIVER PARAMEDIC LINE AT [phone]. PROVIDED AN UPDATE ON PT'S CONDITION - ADMITTED WITH ATRIAL FLUTTER AND SLOW HEART RATE. MRS. MAC STATES THAT HER HAS NO PREVIOUS KNOWN HISTORY OF ATRIAL FLUTTER, AND THAT HE RECENTLY HAD AN ECHOCARDIOGRAM DONE HERE AT [facility] FOR WHICH THEY ARE STILL WAITING TO HEAR RESULTS. MRS. MAC STATED THAT HER CAN BECOME QUITE SAD AND DEPRESSED WITH PROLONGED SEPARATION FROM HER AND REQUESTS THAT A VIDEO CALL BE ARRANGED FOR THE TWO OF THEM TO COMMUNICATE, BOTH SHE AND HER ARE DEAF. I ADVISED HER THAT HER IS RESTING COMFORTABLY RIGHT NOW AND I WILL SPEAK WITH THE DAY SHIFT RN ABOUT GETTING SUCH A CALL SET UP FOR TOMORROW (SUNDAY) DURING THE DAY.
[2021-07-25 21:43] LABS: Free Thyroxine 1.22 ng/dL (0.70-1.60)
[2021-07-25 21:45] LABS: Thyroid Stimulating Hormone 0.85 uIU/mL (0.360-4.800)
[2021-07-26 00:56] LABS: BASOPHILS ABSOLUTE AUTO 0.03 K/mm3 (0.00-0.23); BASOPHILS PERCENT AUTO 0 % (0-2); EOSINOPHILS ABSOLUTE AUTO 0.08 K/mm3 (0.00-0.68); EOSINOPHILS PERCENT AUTO 1 % (0-6); Hematocrit 37.7 % (37.0-53.0); Hemoglobin 12.8 g/dL (13.5-17.5); IMMATURE GRAN ABSOLUTE AUTO 0.24 K/mm3 (0.00-0.10); IMMATURE GRAN PERCENT AUTO 3 % (0-1); LYMPHOCYTES ABSOLUTE AUTO 1.35 K/mm3 (0.84-5.20); LYMPHOCYTES PERCENT AUTO 19 % (21-46); MONOCYTES ABSOLUTE AUTO 0.75 K/mm3 (0.16-1.47); MONOCYTES PERCENT AUTO 11 % (4-13); Mean Corpuscular HGB 33.2 pg (26.0-34.0); Mean Corpuscular Volume 98 fL (80-100); Mean Platelet Volume 9.6 fL (9.1-12.4); NEUTROPHILS ABSOLUTE AUTO 4.55 K/mm3 (1.96-9.15); NEUTROPHILS PERCENT AUTO 65 % (41-73); Platelet Count 158 K/mm3 (150-400); RDW Coefficient Variation 12.9 % (11.7-14.2); RDW Standard Deviation 46.1 fL (35.1-46.3); Red Blood Cell Count 3.86 M/mm3 (4.30-5.90)
[2021-07-26 01:18] LABS: Alanine Aminotransfer (ALT/SGP 65 U/L (12-78); Albumin, Blood 2.5 g/dL (3.4-5.0); Albumin/Globulin Ratio 0.7 (0.8-1.8); Alk Phos 107 U/L (50-136); Anion Gap 7 mmol/L (6-16); Aspartate Aminotrans (AST/SGOT 56 U/L (12-37); Bilirubin, Total 0.4 mg/dL (0.1-1.0); Blood Urea Nitrogen 21 mg/dL (8-24); Bun/Creatinine Ratio 22.6 (12.0-20.0); CO2, Blood 27 mmol/L (21-32); Chloride, Blood 106 mmol/L (98-108); Creatinine, Blood 0.93 mg/dL (0.60-1.20); Globulin, Blood 3.6 g/dL (2.2-4.0); Glomerular Filtration Rate >60 (60-); Glucose, Blood 120 mg/dL (70-99); Magnesium, Blood 1.9 mg/dL (1.6-2.4); Phosphorus, Blood 2.2 mg/dL (2.5-4.9); Potassium, Blood 3.5 mmol/L (3.5-5.5); Sodium, Blood 140 mmol/L (136-145); Total Protein, Blood 6.1 g/dL (6.4-8.2)
--- NOTE | 2021-07-26 06:49 | NUR ---
FOR THE FIRST 3 HOURS OF THE NIGHT, THE PATIENT HAD FREQUENT EPISODES OF HIS HEART RATE DROPPING INTO THE 30S WHILE SLEEPING. DR. MACK WAS NOTIFIED OF THE FREQUENCY OF THESE OCCURRENCES AND ORDERS WERE RECEIVED TO CONTINUE TO MONITOR THE PATIENT FOR ANY CHANGE IN MENTATION AND OTHER VITAL SIGNS. THE PT'S HEART RHYTHM CONITNUES TO BE ATRIAL FLUTTER, WITH THE RATE IMPROVING INTO THE 50S AND 60S, WITH OCCASIONAL DIPS INTO THE 40S WHILE SLEEPING. HIS BLOOD PRESSURE CONTINUED TO IMPROVE THROUGH THE NIGHT, WELL (SEE EMR). PT ADMITTED WITH INDWELLING JI FROM PREVIOUS HOSPITALIZATION DUE TO URINE RETENTION. OUTPUT IS FRANCISCO AND CONCENTRATED.
--- NOTE | 2021-07-26 07:30 | NUR ---
INITIAL ASSESSMENT: Patient is awake and stating he needs to have a bowel movement. He is assisted with the bed akins. He was able to have a small bowel movement. He is alert and oriented. He denies pain at this time. HR irreg, A-Flutter in the 70s-80s. LS Dim with EXP wheezing T/O, biox wnl on RA. Patient has a dry NPC. BT+. PPP. Patient has a superfical wound to his bilateral buttocks, cleansed and new brief placed. VSS. Patient repositioned to have breakfast, he denies other needs at this time. Call light in reach, will continue to monitor.
[2021-07-26 09:20] LABS: International Normalized Ratio 2.11; Prothrombin Time Results 21.1 Sec (9.7-11.5)
--- NOTE | 2021-07-26 16:00 | NUR ---
UPDATE: Patients assessment has been unchanged t/o the shift. He has been really tired, sleeping most of the afternoon. VSS. His called and he was able to facetime with her. He was repositioned. He denies other needs at this time. Call light in reach, will continue to monitor.
--- NOTE | 2021-07-26 18:06 | NUR ---
Summary: Patient is here from [facility] after being found unresponsive. He has been tired today but oriented. No C/O pain this shift. He has been in A-Flutter T/O the shift, this is new for him rate has been controlled 60s-80s. LS have been DIM with EXP wheezing T/O, biox has been WNL on RA T/O the shift. BT +, he had two loose brown BMs this shift. Attends in place, shen cath patent and draining micki urine. He has an open sore to bilateral buttocks, mepilex placed. Patient was able to facetime with his today. I was able to get a hold of the ASL interperter and they will be here at the next two shift changes and as needed in between. No acute changes this shift, will report to oncoming RN.
[2021-07-27 03:37] LABS: BASOPHILS ABSOLUTE AUTO 0.04 K/mm3 (0.00-0.23); BASOPHILS PERCENT AUTO 1 % (0-2); EOSINOPHILS ABSOLUTE AUTO 0.11 K/mm3 (0.00-0.68); EOSINOPHILS PERCENT AUTO 1 % (0-6); Hematocrit 35.2 % (37.0-53.0); Hemoglobin 11.8 g/dL (13.5-17.5); IMMATURE GRAN ABSOLUTE AUTO 0.11 K/mm3 (0.00-0.10); IMMATURE GRAN PERCENT AUTO 1 % (0-1); LYMPHOCYTES ABSOLUTE AUTO 1.38 K/mm3 (0.84-5.20); LYMPHOCYTES PERCENT AUTO 16 % (21-46); MONOCYTES ABSOLUTE AUTO 0.66 K/mm3 (0.16-1.47); MONOCYTES PERCENT AUTO 8 % (4-13); Mean Corpuscular HGB 33.2 pg (26.0-34.0); Mean Corpuscular HGB Conc 33.5 g/dL (31.5-36.5); Mean Corpuscular Volume 99 fL (80-100); Mean Platelet Volume 9.6 fL (9.1-12.4); NEUTROPHILS ABSOLUTE AUTO 6.12 K/mm3 (1.96-9.15); NEUTROPHILS PERCENT AUTO 73 % (41-73); Platelet Count 186 K/mm3 (150-400); RDW Coefficient Variation 12.6 % (11.7-14.2); RDW Standard Deviation 46.1 fL (35.1-46.3); Red Blood Cell Count 3.55 M/mm3 (4.30-5.90); White Blood Cell Count 8.42 K/mm3 (4.00-11.30)
[2021-07-27 03:52] LABS: International Normalized Ratio 3.43; Prothrombin Time Results 33.2 Sec (9.7-11.5)
[2021-07-27 03:59] LABS: Alanine Aminotransfer (ALT/SGP 60 U/L (12-78); Albumin, Blood 2.2 g/dL (3.4-5.0); Albumin/Globulin Ratio 0.6 (0.8-1.8); Alk Phos 97 U/L (50-136); Anion Gap 7 mmol/L (6-16); Aspartate Aminotrans (AST/SGOT 50 U/L (12-37); Bilirubin, Total 0.4 mg/dL (0.1-1.0); Blood Urea Nitrogen 13 mg/dL (8-24); Bun/Creatinine Ratio 15.5 (12.0-20.0); CO2, Blood 25 mmol/L (21-32); Calcium, Blood 7.5 mg/dL (8.5-10.1); Chloride, Blood 108 mmol/L (98-108); Creatinine, Blood 0.84 mg/dL (0.60-1.20); Globulin, Blood 3.6 g/dL (2.2-4.0); Glomerular Filtration Rate >60 (60-); Glucose, Blood 98 mg/dL (70-99); Phosphorus, Blood 2.1 mg/dL (2.5-4.9); Potassium, Blood 3.2 mmol/L (3.5-5.5); Sodium, Blood 140 mmol/L (136-145); Total Protein, Blood 5.8 g/dL (6.4-8.2)
--- NOTE | 2021-07-27 07:30 | NUR ---
INITIAL ASSESSMENT: Patient is resting with his eyes closed, easily awakaens with verbal stimuli. ASL interperter at bedside. He is a little confused this AM, but is easily reoriented. He denies pain at this time. HR Irreg, A-Flutter in the 70s to 80s. LS DIM in the bases, biox 99% on 2l , 95% on RA. Patient has a PC with thick ch sputum. BT+, pt has attends in place. He has a sore to bilat buttocks calizyme cream applied. PPP. VSS. Patient is able to get to the edge of the bed with a moderate assist. He is able to stand and take shuffle steps to the recliner with FWW. He is happy to be OOB. Call light in reach. Will continue to monitor.
--- NOTE | 2021-07-27 12:00 | NUR ---
UPDATE: Patient is still up in the chair. VSS. Daughter at bedside to see the patient. The patient is tearful and happy to see her. He does not want to go back to bed at this time. Call light in reach, will continue to monitor.
--- NOTE | 2021-07-27 15:13 | NUR ---
Update: PT came by to see the patient, he was too sleepy to work with them today. He is still resting with his eyes closed in the recliner, will continue to monitor.
--- NOTE | 2021-07-27 16:30 | NUR ---
Report given to Willi flower RN. Patient was assisted back to the bed, 2 person assist. He was then transferred to Room 355.
--- NOTE | 2021-07-27 17:51 | NUR ---
SHIFT SUMMARY PATIENT IS ALERT AND ORIENTED X3. PATIENT IS DEAF AND USES THE WHITEBOARD TO COMMUNICATE WELL SO FAR THIS SHIFT. PATIENT WAS A TRANSFER FROM U 19 AROUND 1630. VITAL SIGNS REVIEWED. BED IN LOCKED AND LOWEST POSITION. CALL LIGHT IN PLACE. NO ACUTE EVENTS THIS SHIFT.
[2021-07-27] MEDS ORDERED: GABA600 PO (20:04)
--- NOTE | 2021-07-28 03:22 | NUR ---
SHIFT SUMMARY PATIENT HAD NO ACUTE CHANGES OBSERVED. AXOX 3. DEAF-MUTE WITH COMMISSIONING AGENT IN ROOM AT SHIFT CHANGE. COMMISSIONING AGENT HELPED WITH COMMUNIACTION WITH ASSESSMENT AND MEDICATION ADMINISTRATION USING SIGN LANGUAGE. VSS/AFEBRILE. DENIES CHEST PAIN, SOB AND N/V. PIV REMAINS INTACT. ASSISTANT FLOOR COVERING PRINTER REPORTS NSR 87. CHRONIC JI DRAINING TO GRAVITY INTACT. CALL LIGHT IN REACH. BED IN LOWEST POSITION. WILL CONTINUE TO MONITOR UNTIL DAY SHIFT NURSE ASSUMES CARE.
[2021-07-28 05:04] LABS: BASOPHILS ABSOLUTE AUTO 0.02 K/mm3 (0.00-0.23); BASOPHILS PERCENT AUTO 0 % (0-2); EOSINOPHILS PERCENT AUTO 0 % (0-6); Hematocrit 36.9 % (37.0-53.0); Hemoglobin 12.3 g/dL (13.5-17.5); IMMATURE GRAN ABSOLUTE AUTO 0.16 K/mm3 (0.00-0.10); IMMATURE GRAN PERCENT AUTO 2 % (0-1); LYMPHOCYTES ABSOLUTE AUTO 0.62 K/mm3 (0.84-5.20); LYMPHOCYTES PERCENT AUTO 6 % (21-46); MONOCYTES ABSOLUTE AUTO 0.27 K/mm3 (0.16-1.47); MONOCYTES PERCENT AUTO 3 % (4-13); Mean Corpuscular HGB 32.6 pg (26.0-34.0); Mean Corpuscular HGB Conc 33.3 g/dL (31.5-36.5); Mean Corpuscular Volume 98 fL (80-100); Mean Platelet Volume 10.1 fL (9.1-12.4); NEUTROPHILS ABSOLUTE AUTO 9.31 K/mm3 (1.96-9.15); NEUTROPHILS PERCENT AUTO 90 % (41-73); Platelet Count 221 K/mm3 (150-400); RDW Coefficient Variation 12.7 % (11.7-14.2); RDW Standard Deviation 45.7 fL (35.1-46.3); Red Blood Cell Count 3.77 M/mm3 (4.30-5.90); White Blood Cell Count 10.38 K/mm3 (4.00-11.30)
[2021-07-28 05:21] LABS: Prothrombin Time Results 73.6 Sec (9.7-11.5)
[2021-07-28 05:28] LABS: International Normalized Ratio 8.03
[2021-07-28 05:34] LABS: Alanine Aminotransfer (ALT/SGP 75 U/L (12-78); Albumin, Blood 2.4 g/dL (3.4-5.0); Albumin/Globulin Ratio 0.6 (0.8-1.8); Alk Phos 104 U/L (50-136); Anion Gap 8 mmol/L (6-16); Aspartate Aminotrans (AST/SGOT 71 U/L (12-37); Bilirubin, Total 0.8 mg/dL (0.1-1.0); Blood Urea Nitrogen 16 mg/dL (8-24); Bun/Creatinine Ratio 23.2 (12.0-20.0); CO2, Blood 26 mmol/L (21-32); Calcium, Blood 8.5 mg/dL (8.5-10.1); Chloride, Blood 107 mmol/L (98-108); Creatinine, Blood 0.69 mg/dL (0.60-1.20); Glomerular Filtration Rate >60 (60-); Glucose, Blood 142 mg/dL (70-99); Potassium, Blood 3.9 mmol/L (3.5-5.5); Sodium, Blood 141 mmol/L (136-145); Total Protein, Blood 6.4 g/dL (6.4-8.2)
--- NOTE | 2021-07-28 05:46 | NUR ---
[facility] INR 8.03 AND WAS INR 3.43 ON 07/27/21 @ 03:15. MANAGED BY PHARMACY AND PHARMACIST TESSA NOTIFIED.
--- NOTE | 2021-07-28 11:10 | NUR ---
Pt. is awake and engaged with nurse. Spouse is present. Both Pt. and spouse are hearing impaired. Establish rapport with the spouse, and agree to return to see pt. in the afternoon.
--- NOTE | 2021-07-28 16:10 | NUR ---
Pt. is awake and in bed. Spouse is present. Both are hearing impared but spouse is a lip reader and acts as an home designer. Pt. is pleasant. Pt. is expecting to transfer to rehab on the weekend or on Sunday. Facilitated life review, and pt. displayed evidence of some family complications with his children since he remarried. Listened theraputically and relayed communication through translation. Prayed with Pt. Both pt. and spouse displayed evidence of receptivity and engagement with the process of moving to a rehab facility. Pt. verbalized (through sign) gratitude for the spiritual care visit.
--- NOTE | 2021-07-28 16:48 | NUR ---
PATIENT IS AWAKE,ALERT AND ORIENTED TIMES TWO, PATIENT IS DEAF REQUIRING A SIGN LANGUAGE DEEDE WAS AVAILABLE THIS MORNING FOR MEDICATION ADMINISTRATION AND ASSESSMENT.DENIES PAIN. PATIENT AT BEDSIDE.
--- NOTE | 2021-07-29 03:50 | NUR ---
Fence Manufacture Supervisor at bedside during shift change, medication pass, and shift assessment. Education provided for medcations administration and the plan/goals for this shift. Patient asked if he had any clarifying questions or concerns prior to assurance manager insurance ending her shift at approximately 2100. Patient reported no pain, and no further questions. During this shift patient had a successful bowel movement. Patient was repositioned during shift and rounded on Q2 hours. Patient appeared to rest comfortably throughout the night.
[2021-07-29 05:13] LABS: BASOPHILS ABSOLUTE AUTO 0.03 K/mm3 (0.00-0.23); BASOPHILS PERCENT AUTO 0 % (0-2); EOSINOPHILS PERCENT AUTO 0 % (0-6); Hematocrit 38.7 % (37.0-53.0); Hemoglobin 12.7 g/dL (13.5-17.5); IMMATURE GRAN ABSOLUTE AUTO 0.19 K/mm3 (0.00-0.10); IMMATURE GRAN PERCENT AUTO 2 % (0-1); LYMPHOCYTES ABSOLUTE AUTO 0.73 K/mm3 (0.84-5.20); LYMPHOCYTES PERCENT AUTO 6 % (21-46); MONOCYTES ABSOLUTE AUTO 0.49 K/mm3 (0.16-1.47); MONOCYTES PERCENT AUTO 4 % (4-13); Mean Corpuscular HGB 31.8 pg (26.0-34.0); Mean Corpuscular HGB Conc 32.8 g/dL (31.5-36.5); Mean Corpuscular Volume 97 fL (80-100); Mean Platelet Volume 10.2 fL (9.1-12.4); NEUTROPHILS ABSOLUTE AUTO 10.97 K/mm3 (1.96-9.15); NEUTROPHILS PERCENT AUTO 89 % (41-73); Platelet Count 265 K/mm3 (150-400); RDW Coefficient Variation 12.7 % (11.7-14.2); RDW Standard Deviation 45.8 fL (35.1-46.3); Red Blood Cell Count 3.99 M/mm3 (4.30-5.90); White Blood Cell Count 12.41 K/mm3 (4.00-11.30)
[2021-07-29 05:30] LABS: International Normalized Ratio 3.14; Prothrombin Time Results 30.6 Sec (9.7-11.5)
[2021-07-29 05:45] LABS: Alanine Aminotransfer (ALT/SGP 100 U/L (12-78); Albumin, Blood 2.6 g/dL (3.4-5.0); Albumin/Globulin Ratio 0.6 (0.8-1.8); Alk Phos 107 U/L (50-136); Anion Gap 6 mmol/L (6-16); Aspartate Aminotrans (AST/SGOT 88 U/L (12-37); Bilirubin, Total 0.5 mg/dL (0.1-1.0); Blood Urea Nitrogen 16 mg/dL (8-24); Bun/Creatinine Ratio 20.7 (12.0-20.0); CO2, Blood 27 mmol/L (21-32); Calcium, Blood 8.5 mg/dL (8.5-10.1); Chloride, Blood 104 mmol/L (98-108); Creatinine, Blood 0.77 mg/dL (0.60-1.20); Globulin, Blood 4.1 g/dL (2.2-4.0); Glomerular Filtration Rate >60 (60-); Glucose, Blood 140 mg/dL (70-99); Potassium, Blood 3.7 mmol/L (3.5-5.5); Sodium, Blood 137 mmol/L (136-145); Total Protein, Blood 6.7 g/dL (6.4-8.2)
--- NOTE | 2021-07-29 15:40 | NUR ---
pt stated he would like a shower on 07/30/2021
--- NOTE | 2021-07-29 15:46 | NUR ---
SNF referral sent to [facility] on 07/28/21 to [facility]. Followed up on referral authorization today. Delay in reviewing referral due to facility needs. Will follow-up before the end of the day. [facility] was contacted on patient not returning.
--- NOTE | 2021-07-29 17:04 | NUR ---
Patient IS AWKE,ALERT AND ORIENTED TIMES THREE.DENIES PAIN. PATIENT HAD A CONFERENCE WITH FLEET SERVICE MANAGER AND CASEMANGER,DAUGHTER AND TO DISCUSS PLACEMENT ISSUE AND PLAN OF CARE. PATIENT PARTICIPATED IN THERAPY. PATIENT ATE ALL OF MEALS. DENIES COMPLAINT.
[2021-07-30 05:35] LABS: International Normalized Ratio 1.78
--- NOTE | 2021-07-30 05:51 | NUR ---
SHIFT SUMMARY: PATIENT A/O X3 DISORIENTED TO TIME. EDUCATIONAL AUDIOLOGIST ASSISTED COMMUNICATION DURING SHIFT CHANGE, MEDICATION ADMINISTRATION, SHIFT ASSESSMENT AND ANSWERED PLAN OF CARE AND GOALS FOR THIS SHIFT. MEPILEX ON COXYC CHANGED, CATHETER CARE COMPLETED. PATIENT REPORTED NO PAIN THROUGHOUT SHIFT. PATIENT REPORTED PREFERENCE TO SLEEP ON LEFT SIDE WITH PILLOW SUPPORT,ADJUSTED PILLOWS FOR PATIENT WHEN ROUNDING. PATIENT APPEARED TO SLEEP COMFORTABLY THROUGHOUT SHIFT.
--- NOTE | 2021-07-30 10:03 | NUR ---
PER [facility] PT NOT APPROVED YET AND PROBABLY WONT BE UNTIL [place] NOW
--- NOTE | 2021-07-30 16:45 | NUR ---
NO ACUTE CHANGES TO REPORT. PATIENT A&O X3, DEAF. AND CUFF FOLDER ASSISTED WITH COMMUNICATION THIS MORNING. PATIENT COOPERATIVE WITH CARE AND MEDICATION. DRESSING TO SACRAL AREA CHANGED. JI CATHETER IN PLACE. PATIENT DENIES PAIN THROUGHOUT THE SHIFT.
[2021-07-31 04:48] LABS: BASOPHILS ABSOLUTE AUTO 0.07 K/mm3 (0.00-0.23); BASOPHILS PERCENT AUTO 1 % (0-2); EOSINOPHILS ABSOLUTE AUTO 0.14 K/mm3 (0.00-0.68); EOSINOPHILS PERCENT AUTO 1 % (0-6); Hematocrit 34.7 % (37.0-53.0); Hemoglobin 11.3 g/dL (13.5-17.5); IMMATURE GRAN ABSOLUTE AUTO 0.43 K/mm3 (0.00-0.10); IMMATURE GRAN PERCENT AUTO 4 % (0-1); LYMPHOCYTES ABSOLUTE AUTO 1.41 K/mm3 (0.84-5.20); LYMPHOCYTES PERCENT AUTO 14 % (21-46); MONOCYTES ABSOLUTE AUTO 0.82 K/mm3 (0.16-1.47); MONOCYTES PERCENT AUTO 8 % (4-13); Mean Corpuscular HGB 32.5 pg (26.0-34.0); Mean Corpuscular HGB Conc 32.6 g/dL (31.5-36.5); Mean Corpuscular Volume 100 fL (80-100); Mean Platelet Volume 9.9 fL (9.1-12.4); NEUTROPHILS ABSOLUTE AUTO 7.28 K/mm3 (1.96-9.15); NEUTROPHILS PERCENT AUTO 72 % (41-73); NRBC ABSOLUTE 0.03 K/mm3 (0.00-0.02); NRBC Auto 0.3 /100 WBC (0.0-0.2); Platelet Count 250 K/mm3 (150-400); RDW Coefficient Variation 13.2 % (11.7-14.2); RDW Standard Deviation 47.4 fL (35.1-46.3); Red Blood Cell Count 3.48 M/mm3 (4.30-5.90); White Blood Cell Count 10.15 K/mm3 (4.00-11.30)
--- NOTE | 2021-07-31 04:55 | NUR ---
SHIFT SUMMARY: DEAF-SIGN LANGUAGE COMMUNICATION BASELINE AUTO MACHINIST AT BEDSIDE TO ASSIST COMMUNICATION DURING SHIFT CHANGE, MEDICATION ADMINISTRATION AND ASSESSMENT. PRIOR TO AUTO MACHINIST LEAVING PATIENT GIVEN OPPORTUNITY TO ASK QUESTIONS INVOLVING PLAN OF CARE. Q2 TURN/REPOSITIONED PILLOWS DURING THIS SHIFT. PT HAS COMMUNICATED PREFERENCE TO SLEEP ON SIDE DURING THE NIGHT. UPON ROUNDING PT APPEARED TO REST COMFORTABLE, NO PAIN COMPLAINTS THROUGHOUT SHIFT.
[2021-07-31 05:02] LABS: International Normalized Ratio 1.86; Prothrombin Time Results 18.8 Sec (9.7-11.5)
[2021-07-31 05:03] LABS: Albumin, Blood 2.3 g/dL (3.4-5.0); Anion Gap 7 mmol/L (6-16); Blood Urea Nitrogen 7 mg/dL (8-24); Bun/Creatinine Ratio 10.2 (12.0-20.0); CO2, Blood 27 mmol/L (21-32); Calcium, Blood 8.7 mg/dL (8.5-10.1); Chloride, Blood 107 mmol/L (98-108); Creatinine, Blood 0.69 mg/dL (0.60-1.20); Glomerular Filtration Rate >60 (60-); Glucose, Blood 105 mg/dL (70-99); Magnesium, Blood 2.2 mg/dL (1.6-2.4); Phosphorus, Blood 3.1 mg/dL (2.5-4.9); Potassium, Blood 4.2 mmol/L (3.5-5.5); Sodium, Blood 141 mmol/L (136-145)
--- NOTE | 2021-07-31 16:47 | NUR ---
PATIENT IS AWAKE,ALERT AND ORIENTED TIME THREE. PATIENT IS DEAF AT BEDSIDE. DENIES PAIN. ROUND ON PATIENT NO NEW ORDER. STATES THAT PATIENT IS PENDING PLACEMENT AND PATIENT IS MEDICALLY STABLE FOR TRANSFER.
--- NOTE | 2021-08-01 04:30 | NUR ---
SHIFT SUMMARY PATIENT A0X3 PLEASANT ABLE TO VOICE NEEDS VIA CERTIFIED FIRE INVESTIGATOR DURING SHIFT CHANGE PRESENT DURING SHIFT CHANGE .NO ACUTE CHANGE NOTED IN THIS SHIFT.PT POSSIBLE D/C TODAY PER
[2021-08-01 05:09] LABS: International Normalized Ratio 1.64; Prothrombin Time Results 16.7 Sec (9.7-11.5)
--- NOTE | 2021-08-01 17:35 | NUR ---
PATIENT IS AWAKE,ALERT AND ORIENTED TO PLACE WITH EPISODE OF CONFUSION.DENIES PAIN. DISCUSS PLAN OF CARE TO AND AGREE WITH COUMADIN ADMINISTRATION.PATIENT DENIES PAIN. PATIENT IS CURRENTLY WAITING ON A PLACEMENT. NO ACUTE DISTRESS NOTED. AT BEDSIDE.
--- NOTE | 2021-08-02 04:37 | NUR ---
SHIFT SUMMARY PATIENT ALERT ABLE TO COMMUNICATE WITH WHITE BOARD PLEASANT JOSE ANY PAIN JI CATH DRAINING WELL FRANCISCO URINE.NO ACUTE CHANGE IN THIS SHIFT
[2021-08-02 07:54] LABS: International Normalized Ratio 1.42; Prothrombin Time Results 14.6 Sec (9.7-11.5)
--- NOTE | 2021-08-02 15:07 | NUR ---
Pt. is soundly resting. Spouse is present. Both are hearing impared. Spoke briefly with spouse and agreed to return later in the day.
--- NOTE | 2021-08-02 17:04 | NUR ---
Positive COVID on 07/16/21; awaiting 20 day quarantine (hospitalization symptomatic) to admit to [facility]. [facility] will admit on 08/05/21.
--- NOTE | 2021-08-02 17:43 | NUR ---
SHIFT SUMMARY PT AxOx3 WITH CONFUSION BOUTS AND VERY [place]SH[place]. PT HAS IN ROOM TO HELP WITH INTERPRETING FOR MOST OF DAY SHIFT. READS LIPS AND PRIMARILY USES ASL FOR COMMUNICATION. VITALS REVIEWED. CURRENT PLAN IS FOR PT TO DC TO [facility] FOR REHAB THIS SUNDAY AFTER COVID QUARENTINE PERIOD UP PER FACILITY PROTOCOL. PT DENIES ANY NEEDS AT THIS TIME. CALL LIGHT IN REACH.
--- NOTE | 2021-08-03 05:14 | NUR ---
SHIFT SUMMARY REMAIN PLEASANT WITH CARE MATHEW DRANING FRANCISCO URINE NO SOB NOTED JOSE PAIN. NO ACUTE CHANGE IN THIS SHIFT
[2021-08-03 06:00] LABS: Prothrombin Time Results 48.4 Sec (9.7-11.5)
[2021-08-03 06:03] LABS: International Normalized Ratio 5.13
--- NOTE | 2021-08-03 06:14 | NUR ---
CRITICAL LAB CRITICAL RESULTS INR 5.[address] MORRIS MADE AWARE NEW ORDER HOLD COMADIN DON REPEAT INR TOMORROW 08/04/21
--- NOTE | 2021-08-03 18:22 | NUR ---
SHIFT SUMMARY PT A&O X3-4 AND IN PLEASENT MOOD T/O SHIFT. PT @ BEDSIDE T/O VISITING HOURS. PT DEAF, WHITE BOARD UTILIZED FOR COMMUNICATION. VSS. PT RESTED COMFORTABLY IN BED T/O SHIFT. SPOUSE STATED THAT PT APPEARS MORE DROWSEY THAN USUAL. CALL LIGHT W/IN REACH. PT DENIES CP, TIGHTNESS, OR SOB. PLAN ON SUN D/C TO FACILITY PER SPOUSE.
--- NOTE | 2021-08-04 03:33 | NUR ---
SHIFT SUMMARY PATIENT ALERT AND PLEASANT JOSE ANY PAIN LUNGS SOUND CLEAR 1800 GABAPETIN HELD PER FAMILY REQUEST THAT PATIENT SEEMS MORE SLEEPY DURING DAY TIME.JI DRAINING FRANCISCO URINE PATENT.COUMADIN ON HOLD NO S/S OF BLEEDING PT/INR SCHEDUEL THIS MORNING .
[2021-08-04 05:20] LABS: International Normalized Ratio 2.32; Prothrombin Time Results 23.1 Sec (9.7-11.5)
--- NOTE | 2021-08-04 14:29 | NUR ---
Pt. is being placed in a chair, is displaying evidence of somnolence. Pts. spouse is present. Both pt. and spouse are hearing impared, but spouse is a lip reader. Pt. is planning on D/C to [facility] to take place on Sunday. Facilitated Life Review and through theraputic listening identified the issues pt. fears. Pt. displays evidence of the fear of isolation, (spouse is source of comfort). Gave pastoral residential substance abuse counselor and prayed with pt. and spouse. Pt. displayed evidence of gratitude for the pastoral care visit.
--- NOTE | 2021-08-04 16:28 | NUR ---
SHIFT SUMMARY PT A&O X3-4, PT IN PLEASENT MOOD T/O SHIFT. PT SPOUSE @ BEDSIDE T/O MOST OF SHIFT, SPOUSE EXPRESSED CONCERN ABOUT PT TRANSFER TOMORROW DUE TO HER BEING BUSY W/ ANOTHER APPT. @ SAME TIME. PT WORKED W/ OCCUPATIONAL THERAPY, HOWEVER PT REFUSED PHYSICAL THERAPY. VSS. CALL LIGHT W/IN REACH.
--- NOTE | 2021-08-05 03:31 | NUR ---
SHIFT SUMMARY PATIENT REMAIN PLEASANT WITH CARE CONT TO USE WHITE BOARD FOR COMMUNICATION.JI DRAINING WELL DARK URINE PO FLUIDS ENCOURAGED AND OFFERED.NO DROSYNESS NOTED ALERT AND AWAKE.PT TO BE D/C TODAY
[2021-08-05 05:39] LABS: International Normalized Ratio 3.04; Prothrombin Time Results 29.7 Sec (9.7-11.5)
[2021-08-05] MEDS ORDERED: TAMS.4ER PO (13:13)
[2021-08-05] MEDS ORDERED: GUAI600T33 PO (13:15)
[2021-08-05] MEDS ORDERED: Coumadin2 MG PO (13:16)
[2021-08-05] MEDS ORDERED: IPRAT-ALBUT 0.5-3 ML INH (13:16)
--- NOTE | 2021-08-05 15:01 | NUR ---
DISCHARGE SUMMARY REPORT GIVEN TO IMTIAZ RODRIGUEZ AT [facility]. DISCHARGE INSTRUCTIONS WENT OVER WITH PATIENT AND AT BEDSIDE. ALL CONCERNS AND QUESTIONS ANSWERED. PATIENT WHEELED OUT VIA AMBULANCE WITH PRIMARY RN.
== END 2021-08-05 16:35 | DRG 177 ==
LOC: ER 13:31 → PCU 13:32 → ER 16:25 → PCU 17:44 → MEDS 07-27 17:28
PROVIDERS: Emergency Medicine; Family Medicine; Internal Medicine; ADMIT Hospitalist
PROC: 8E0ZXY6 Isolation (ICD-10-PCS; principal; 2021-07-27)
DX: U07.1 COVID-19 (principal); J12.82 Pneumonia due to coronavirus disease 2019; I48.92 Unspecified atrial flutter; J44.1 Chronic obstructive pulmonary disease with (acute) exacerbation; E87.6 Hypokalemia; I95.9 Hypotension, unspecified; R79.1 Abnormal coagulation profile; E86.0 Dehydration; H91.90 Unspecified hearing loss, unspecified ear; E83.39 Other disorders of phosphorus metabolism; R33.9 Retention of urine, unspecified; I50.9 Heart failure, unspecified; F03.90 Unspecified dementia, unspecified severity, without behavioral disturbance, psychotic disturbance, mood disturbance, and anxiety; D64.9 Anemia, unspecified; I11.0 Hypertensive heart disease with heart failure; G40.909 Epilepsy, unspecified, not intractable, without status epilepticus; I35.8 Other nonrheumatic aortic valve disorders; E78.5 Hyperlipidemia, unspecified; G62.9 Polyneuropathy, unspecified; I25.10 Atherosclerotic heart disease of native coronary artery without angina pectoris; K21.9 Gastro-esophageal reflux disease without esophagitis; N40.0 Benign prostatic hyperplasia without lower urinary tract symptoms; M54.16 Radiculopathy, lumbar region; G47.30 Sleep apnea, unspecified; Z96.611 Presence of right artificial shoulder joint; Z79.82 Long term (current) use of aspirin; Z79.899 Other long term (current) drug therapy; Z98.890 Other specified postprocedural states; Z87.891 Personal history of nicotine dependence; Z86.61 Personal history of infections of the central nervous system
CPT/HCPCS: 36415; 71045; 80053; 80069; 83735; 83880; 84100; 84145; 84439; 84443; 84484; 85025; 85610; 92610; 93005; 93010; 94640; 94664; 94667; 94668; 94760; 97110; 97116; 97163; 97166; 97530; 97535; 99285-25; A9270; G0378; J0456; J0696; J1650; J2920; J3480; J7030; J7040; J7050; J7509

== ENCOUNTER 2021-08-06 18:26 | Inpatient (IN) | payer OTHER, MEDICARE ==
[~2021-08-06] VITALS: Ht 177.8 cm; Wt 99.0 kg
[~2021-08-06 18:26] MED LIST changes: -ATOR20 PO; +ATOR40TA PO; +GABA600 PO; +GUAI600T33 PO; +IPRAT-ALBUT 0.5-3 ML INH; +WARF2.5 PO
[2021-08-06 18:55] LABS: BASOPHILS ABSOLUTE AUTO 0.07 K/mm3 (0.00-0.23); BASOPHILS PERCENT AUTO 1 % (0-2); EOSINOPHILS ABSOLUTE AUTO 0.02 K/mm3 (0.00-0.68); EOSINOPHILS PERCENT AUTO 0 % (0-6); Hemoglobin 12.3 g/dL (13.5-17.5); IMMATURE GRAN ABSOLUTE AUTO 0.17 K/mm3 (0.00-0.10); IMMATURE GRAN PERCENT AUTO 2 % (0-1); LYMPHOCYTES ABSOLUTE AUTO 1.45 K/mm3 (0.84-5.20); LYMPHOCYTES PERCENT AUTO 17 % (21-46); MONOCYTES ABSOLUTE AUTO 1.02 K/mm3 (0.16-1.47); MONOCYTES PERCENT AUTO 12 % (4-13); Mean Corpuscular HGB 32.2 pg (26.0-34.0); Mean Corpuscular HGB Conc 33.2 g/dL (31.5-36.5); Mean Corpuscular Volume 97 fL (80-100); Mean Platelet Volume 9.7 fL (9.1-12.4); NEUTROPHILS ABSOLUTE AUTO 5.68 K/mm3 (1.96-9.15); NEUTROPHILS PERCENT AUTO 68 % (41-73); Platelet Count 269 K/mm3 (150-400); RDW Coefficient Variation 12.9 % (11.7-14.2); RDW Standard Deviation 45.1 fL (35.1-46.3); Red Blood Cell Count 3.82 M/mm3 (4.30-5.90); White Blood Cell Count 8.41 K/mm3 (4.00-11.30)
[2021-08-06 19:09] LABS: Alanine Aminotransfer (ALT/SGP 87 U/L (12-78); Albumin, Blood 2.4 g/dL (3.4-5.0); Albumin/Globulin Ratio 0.6 (0.8-1.8); Alk Phos 110 U/L (50-136); Anion Gap 5 mmol/L (6-16); Aspartate Aminotrans (AST/SGOT 50 U/L (12-37); Bilirubin, Total 0.5 mg/dL (0.1-1.0); Blood Urea Nitrogen 7 mg/dL (8-24); Bun/Creatinine Ratio 8.5 (12.0-20.0); CO2, Blood 25 mmol/L (21-32); Calcium, Blood 8.2 mg/dL (8.5-10.1); Chloride, Blood 104 mmol/L (98-108); Creatinine, Blood 0.83 mg/dL (0.60-1.20); Globulin, Blood 4.3 g/dL (2.2-4.0); Glomerular Filtration Rate >60 (60-); Glucose, Blood 119 mg/dL (70-99); Potassium, Blood 4.5 mmol/L (3.5-5.5); Sodium, Blood 134 mmol/L (136-145); Total Protein, Blood 6.7 g/dL (6.4-8.2)
[2021-08-06 22:10] LABS: International Normalized Ratio 2.14; Prothrombin Time Results 21.4 Sec (9.7-11.5)
--- NOTE | 2021-08-06 22:59 | NUR ---
ARRIVED TO THE SURGICAL UNIT AT APPROX 2230, VITAL SIGNS TAKEN AND PATIENT ASSESSED. MEPLEX ON COXXYX CHANGED AT THIS TIME. JI DRAINING DARK FRANCISCO URINE. PT UNABLE TO COMMUNICATE BUT I EXPLAINED THE CALL LIGHT TO HIM AND HE GAVE ME A THUMBS UP. WILL CONTINUE TO MONITOR, CALL LIGHT IN REACH.
--- NOTE | 2021-08-07 00:56 | NUR ---
CATHETER CARE DONE, PT. TOLERATED WELL.
[2021-08-07 01:23] LABS: Influenza A, PCR NEGATIVE (NEGATIVE); Influenza B, PCR NEGATIVE (NEGATIVE); Resp Syncytial Virus, PCR NEGATIVE (NEGATIVE); SARS-Cov-2 (COVID-19) PCR, MMC NEGATIVE (NEGATIVE)
[2021-08-07 04:27] LABS: BASOPHILS ABSOLUTE AUTO 0.07 K/mm3 (0.00-0.23); BASOPHILS PERCENT AUTO 1 % (0-2); EOSINOPHILS PERCENT AUTO 0 % (0-6); Hematocrit 33.3 % (37.0-53.0); Hemoglobin 11.4 g/dL (13.5-17.5); IMMATURE GRAN ABSOLUTE AUTO 0.14 K/mm3 (0.00-0.10); IMMATURE GRAN PERCENT AUTO 2 % (0-1); LYMPHOCYTES ABSOLUTE AUTO 1.08 K/mm3 (0.84-5.20); LYMPHOCYTES PERCENT AUTO 12 % (21-46); MONOCYTES ABSOLUTE AUTO 0.81 K/mm3 (0.16-1.47); MONOCYTES PERCENT AUTO 9 % (4-13); Mean Corpuscular HGB 32.8 pg (26.0-34.0); Mean Corpuscular HGB Conc 34.2 g/dL (31.5-36.5); Mean Corpuscular Volume 96 fL (80-100); Mean Platelet Volume 9.6 fL (9.1-12.4); NEUTROPHILS ABSOLUTE AUTO 6.81 K/mm3 (1.96-9.15); NEUTROPHILS PERCENT AUTO 76 % (41-73); Platelet Count 257 K/mm3 (150-400); RDW Coefficient Variation 12.9 % (11.7-14.2); RDW Standard Deviation 44.7 fL (35.1-46.3); Red Blood Cell Count 3.48 M/mm3 (4.30-5.90); White Blood Cell Count 8.91 K/mm3 (4.00-11.30)
--- NOTE | 2021-08-07 05:04 | NUR ---
SHIFT SUMMARY SINCE ARRIVAL TO THE FLOOR PATIENT HAS BEEN RESTING COMFORTABLY. NO REPORTS OF PAIN UNLESS HE IS BEING REPOSITIONED. JI DRAINING FRANCISCO URINE TO GRAVITY. VITAL SIGNS STABLE. NO NAUSEA OR VOMITTING. CHANGED MEPLEX ON COXXYX FOR PRESSURE SORE. WILL CONTINUE TO MONITOR AND REPORT TO ONCOMING RN.
[2021-08-07 05:47] LABS: Anion Gap 6 mmol/L (6-16); Blood Urea Nitrogen 7 mg/dL (8-24); Bun/Creatinine Ratio 8.4 (12.0-20.0); CO2, Blood 24 mmol/L (21-32); Calcium, Blood 7.8 mg/dL (8.5-10.1); Chloride, Blood 105 mmol/L (98-108); Creatinine, Blood 0.83 mg/dL (0.60-1.20); Glomerular Filtration Rate >60 (60-); Glucose, Blood 119 mg/dL (70-99); Potassium, Blood 4.5 mmol/L (3.5-5.5); Sodium, Blood 135 mmol/L (136-145)
[2021-08-07 08:49] LABS: International Normalized Ratio 1.62
[2021-08-07 08:54] LABS: Prothrombin Time Results 16.5 Sec (9.7-11.5)
--- NOTE | 2021-08-07 15:36 | NUR ---
SHIFT SUMMARY PT A&OX2-3, DEAF COMMUNICATES BY READING LIPS OR WRITTEN NOTE, VSS/RA. JENNIFER PO, HAS FALSE TEETH. CHRONIC JI, STAT LOCK ON, OFF FLOOR. PAIN MANAGED WITH 10 MG NORCO PRN, 50 FENT GIVEN 1X. PLAN FOR NPO MIDNIGHT FOR L HIP FX REPAIR TOMORROW/ORTHO CONSULTED TODAY. WILL REPORT TO ONCOMING NOC RN.
--- NOTE | 2021-08-08 03:53 | NUR ---
SHIFT SUMMARY: PT. IS DEAF,NON VERBAL BUT CAN READ LIPS & UNDERSTANDS SOME ACTIONS. REFUSED TO BE TURNED MOST OF THE TIME & HITS AT TIMES IF REPOSITIONED BUT SOMETIMES HE COOPERATES BY GRABBING THE SIDERAIL TO BE TURNED . FLOATED COCCYS WITH PILLOWS ON BOTH SIDES. CATHETER CARE DONE WITH READYCLEANSE WIPES, PT. TOLERATED WELL. NO ACUTE CHANGES NOTED, WILL CONTINUE TO MONITOR.
--- NOTE | 2021-08-08 04:29 | NUR ---
NPO STARTED MIDNIGHT FOR POSSIBLE SURGERY MARGY.
[2021-08-08 07:32] LABS: International Normalized Ratio 1.57
--- NOTE | 2021-08-08 15:49 | NUR ---
Patient was discharged on 08/05/21 to [facility]: [facility]. Indra is patient's full time babysitter support. She is also deaf and uses ASL and able to read lips. She is able to text and responds quickly to messages. She notified me on 08/06/21 of Eladio's fall and readmittance.
--- NOTE | 2021-08-08 16:30 | NUR ---
SHIFT SUMMARY: LEFT HIP FX PATIENT IS DEAF AND ALERT AND ORIENTED X3-4. PATIENT HAS DEMENTIA HISTORY BUT IS PLEASANTLY COOPERATIVE WITH TREATMENT. PAIN IS MANAGED WITH 2 PO NORCOS. LEFT HIP IS SWOLLEN AND IS EXTREMELY TENDER. PATIENT HAS REFUSED TO BE REPOSITIONED MOST OF THE SHIFT EVEN WITH PAIN MEDICATIONS ON BOARD. PATIENT CAN MOVE FINGERS AND TOES WHEN ASKED. JI IS IN PLACE AND DRAINING PER GRAVITY. PATIENT IS RESTING COMFORTABLY IN BED WITH CALL LIGHT WITHIN REACH. THE PLAN IS TO HAVE SURGERY TOMORROW WITH DR. MEYER. PATIENTS WILL BE IN AT 0800 TO HELP SIGN PAPERS FOR THE PATIENT.
--- NOTE | 2021-08-09 02:23 | NUR ---
SHIFT SUMMARY: PT. ABLE TO MAKE NEEDS KNOWN BY ACTIONS, OFFERED TURNING TO SIDES SEVERAL TIMES, PT. WOULD SOMETIMES AGREE BY TRYING TO MOVE TO THE DIRECTION EXPLAINED TO HIM BY HOLDING ONTO STAFF'S HAND BUT WHEN HIP IS MOVED, HE WOULD SCREAM & REFUSE, A LOT OF TIMES WILL HIT IF STAFF WOULD INSIST. PT. EXPRESSED HE IS FINE IF NOT MOVING. AGREED TO TAKE HIS PAIN MED. TOGETHER WITH EVENING MEDS. FLOATED COCCYX BY PUTTING ON HIS SIDE. JI CATHETER DRAINING FRANCISCO COLORED URINE. CATHETER CARE WITH READYCLEANSE WIPES. PT. SLEEPING WELL. ROUNDING PER PROTOCOL THEN PRN DONE. NO ACUTE CHANGES NOTED, WILL CONTINUE TO MONITOR. NPO STARTED MIDNIGHT FOR POSSIBLE SURGERY TODAY.
[2021-08-09 05:35] LABS: International Normalized Ratio 1.32; Prothrombin Time Results 13.6 Sec (9.7-11.5)
--- NOTE | 2021-08-09 20:58 | NUR ---
FLOATED COCCYX BY PUTTING PILLOWS UNDER SIDES, PT. TOLERATED WELL & COOPERATED WITH CARE. CATHETER CARE DONE WITH READYCLEANSE WIPES.
--- NOTE | 2021-08-10 02:06 | NUR ---
SHIFT SUMMARY: PT. IS DEAF, UNDERSTANDS ACTIONS, CAN READ LIPS OR WRITING. BEDSORE TO COCCYX WITH MEPILEX ON, FLOATED SACRAL AREA BY PLACING PILLOWS UNDER BILATERAL SIDES. PT. REFUSED TO BE TURNED TO SIDES & HITS IF STAFF WOULD INSIST. CATHETER CARE DONE WITH READY CLEANSE WIPES, PT. TOLERATED WELL. SLEEPING WELL DURING THE SHIF. TRIED TO ASSIST WITH DINNER BUT REFUSED. DRINKING WELL. JI CATH DRAINING FRANCISCO URINE VIA GRAVITY. NO ACUTE CHANGES NOTED. WILL CONTINUE TO MONITOR.
--- NOTE | 2021-08-10 04:41 | NUR ---
NPO STARTED AT MIDNIGHT FOR POSSIBLE SURGERY TODAY.
[2021-08-10 10:57] LABS: International Normalized Ratio 1.22; Prothrombin Time Results 12.6 Sec (9.7-11.5)
--- NOTE | 2021-08-10 11:12 | NUR ---
PATIENT JUST LEFT FOR SURGERY.
--- NOTE | 2021-08-10 12:17 | NUR ---
History, Chart, Medications and Allergies reviewed before start of procedure. Lungs clear T/O to Auscultation. Patient confirms NPO status and agrees with scheduled surgery. VAUGHNDE AT BEDSIDE SHE READS LIPS. PT IS DEAF USES ASL.
--- NOTE | 2021-08-10 14:19 | NUR ---
08/10/21 1419 Obinna Liriano PATIENT ARRIVED TO OR WITH JI CATH IN PLACE. BUTTOCK AREA AND UPPER THIGH AREA REDDENED.
--- NOTE | 2021-08-10 16:25 | NUR ---
PATIENT CAME BACK FROM PACU TODAY 08/10/21 @ 1600. POD 0 LEFT HIP REPAIR PATIENT CAME BACK DROWSY BUT EASILY AROUSABLE WITH TOUCH. PATIENT IS ON RA WITH AT LEAST 92% OXYGEN SATS BECAUSE PATIENT KEEPS TAKING OFF THE NC. PATIENT REPORTS SLIGHT DISCOMFORT BUT DENIES WANTING PAIN MEDICATIONS. LEFT HIP HAS TWO BIG BULKY DRESSINGS THAT ARE C/D/I. HE CAN WIGGLE TOES AND FINGERS. PATIENT IS ASLEEP IN BED WITH CALL LIGHT IN REACH. IS AT BEDSIDE TO HELP WITH TRANSLATING. PATIENT IS TO BE TOE TOUCH WT BEARING.
--- NOTE | 2021-08-10 19:36 | NUR ---
Pt. is resting and unresponsive. Pts. spouse is present. Spouse updates me on the pts. recent readmittance and surgery. Both pt. and spouse are hearing impaired, but spouse reads lips. Spouse is unsettled by some support system deficits in their lives. Listen empatheticially and provided pastoral pre parole counseling aide. Spouse displays evidence of agreement. Pt. wakes up. [place] with Pt. and spouse (spouse signs for Pt.) Spouse verbalizes gratitude for the spiritual care visit.
--- NOTE | 2021-08-11 01:46 | NUR ---
SHIFT SUMMARY: RECEIVED PT. ASLEEP BUT AROUSABLE, EXPRESSED BEING COMFORTABLE WHEN LYING ON HIS BACK, COMPLAINTS OF PAIN & SCREAMS WHEN REPOSITIONED,MEDICATED PER EMAR.L HIP WITH 2 FOAM DRESSINGS ON C/D/I. TRIED ASSISTING PT. WITH HIS DINNER, PT. TASTED THE FOOD & REFUSED TO EAT. OFFERED WATER SEVERAL TIMES & PT. DRANK WELL. FREQUENT ROUNDING DONE,REPOSITIONED & FLOATED COCCYX WITH PILLOWS UNDER SIDES.PT. COOPERATIVE WITH CARE. CATHETER CARE DONE WITH READYCLEANSE WIPES.O2 1 L VIA NC GIVEN PT'S O2 SAT DROPS TO 87% WHEN ASLEEP. O2 SAT 94% & ABOVE WITH 1 L O2 VIA NC. NO ACUTE CHANGES NOTED.PT. SLEEPING WELL.
[2021-08-11 05:14] LABS: BASOPHILS ABSOLUTE AUTO 0.03 K/mm3 (0.00-0.23); BASOPHILS PERCENT AUTO 0 % (0-2); EOSINOPHILS PERCENT AUTO 0 % (0-6); Hematocrit 28.6 % (37.0-53.0); Hemoglobin 9.6 g/dL (13.5-17.5); IMMATURE GRAN PERCENT AUTO 1 % (0-1); LYMPHOCYTES ABSOLUTE AUTO 1.17 K/mm3 (0.84-5.20); LYMPHOCYTES PERCENT AUTO 13 % (21-46); MONOCYTES ABSOLUTE AUTO 0.62 K/mm3 (0.16-1.47); MONOCYTES PERCENT AUTO 7 % (4-13); Mean Corpuscular HGB 32.3 pg (26.0-34.0); Mean Corpuscular HGB Conc 33.6 g/dL (31.5-36.5); Mean Corpuscular Volume 96 fL (80-100); Mean Platelet Volume 9.8 fL (9.1-12.4); NEUTROPHILS ABSOLUTE AUTO 7.37 K/mm3 (1.96-9.15); NEUTROPHILS PERCENT AUTO 79 % (41-73); Platelet Count 243 K/mm3 (150-400); RDW Standard Deviation 45.1 fL (35.1-46.3); Red Blood Cell Count 2.97 M/mm3 (4.30-5.90); White Blood Cell Count 9.29 K/mm3 (4.00-11.30)
--- NOTE | 2021-08-11 05:19 | NUR ---
0007 JI OUT 720ML CLEAR YELLOW 0315 JI OUT 1200ML PT RESTING, HAS AKNOWLEDGED HIS LEGS FEEL BETTER, DOES NOT SCREAM NO OR PUSH ME AWAY WHEN I MOVE BLANKETS OR PALPATE LEGS, LEGS ARE SOFTER TO TOUCH.WITH ATEMPTS TO REPOSITION, PT WAS STILL REFUSING.AT THAT TIME,PRESENTLY,CHANGED PEDRO HOSE TO KNEE HIGH RATHER THAN LONGER WHICH WERE ON HIM.PT HAS PUT OUT 300 ML MORE. PT ALLOWING US MORE FREELY TO MOVE LEGS.
[2021-08-11 05:27] LABS: International Normalized Ratio 1.24; Prothrombin Time Results 12.8 Sec (9.7-11.5)
--- NOTE | 2021-08-11 05:31 | NUR ---
PT APPEARS MORE COMFORTABLE,AND POSSIBLY WILLING TO REPOSITION WITH LESS PAIN. I GAVE NORCO PO. CLINICAL ALLERGIST WANTING TO REPOSITION AT THIS TIME.HOWEVER,PT STILL GRABBING AND CALLING OUT,REFUSING.I ASKED CLINICAL ALLERGIST TO WAIT UNTIL NORCO HAD TIME TO TAKE EFFECT AND I WOULD PLACE ICE TO HIP AND REPOSITION PT WHEN PAIN MEDS ARE MOST EFFECTIVE.
[2021-08-11 05:34] LABS: Anion Gap 6 mmol/L (6-16); Blood Urea Nitrogen 11 mg/dL (8-24); Bun/Creatinine Ratio 16.1 (12.0-20.0); CO2, Blood 24 mmol/L (21-32); Calcium, Blood 7.9 mg/dL (8.5-10.1); Chloride, Blood 105 mmol/L (98-108); Creatinine, Blood 0.68 mg/dL (0.60-1.20); Glomerular Filtration Rate >60 (60-); Glucose, Blood 132 mg/dL (70-99); Magnesium, Blood 1.9 mg/dL (1.6-2.4); Potassium, Blood 4.7 mmol/L (3.5-5.5); Sodium, Blood 135 mmol/L (136-145)
--- NOTE | 2021-08-11 06:14 | NUR ---
ASKED PT. IF WE CAN SIT HIM UP AT THE SIDE OF THE BED, PT. REFUSED. TURNED Q 2 HRS THEN PRN TO RELIEVE PRESSURES ON SKIN ESPECIALLY SKIN EXCORIATION TO HIS BOTTOM WHICH WERE WINDOWS ARCHITECT, BED SORE TO COCCYX WITH MEPILEX ON.
--- NOTE | 2021-08-11 11:49 | NUR ---
When I arrive Pt. is awake and partially propped up in bed. Soupse is present. Both pt. and spouse are hearing impaired, but the spouse is a lip reader and can translate in sign for the Pt. Re-establish rapport. Pt.displays evidence of somnolence, but desires to shake my hand in gratitude. Focus my pastoral care on the Pts. spouse. Spouse is unsettled by the complicated details regarding the pts. prognosis, and support system deficits they both face. Provided a calming presence, and encouraged the spouse to do more self care. Spouse displayed evidence of agreement. The Pt. had fallen asleep, so pastoral prayer is given for the spouse. The spouse verbalizes gratitude for the spiritual care that was provided.
--- NOTE | 2021-08-11 15:28 | NUR ---
SHIFT SUMMARY: POD 1 LEFT HIP PINNING PATIENT IS ALERT AND ORIENTED X3 BUT DOES HAVE A HX OF DEMENTIA. PATIENT SO FAR HASN'T TRIED TO GET OUT OF BED. BED ALARM ON. HIS LEFT HIP HAS TWO AQUACEL DRESSINGS THAT ARE C/D/I. HE ALSO HAS A GAUZE AND TRANSPARENT TAPE ON HIS LEFT LEG FROM A BLISTER BUT IS C/D/I. HE WORKED WITH PT/OT A LITTLE BIT BUT COULDN'T GET OUT OF BED BECAUSE OF PAIN. PATIENT IS GIVEN PO NORCO, TYLENOL, IV TORADOL, AND GABAPENTIN BUT IS STILL PAINFUL WITH MOVEMENT. PATIENT HAS BEEN OFFERED ICE PACKS BUT DENIES WANTING THEM. PATIENT IS ON RA BUT AT NIGHT SHOULD BE ON 2L NC AND ON THE BIOX SINCE HE TAKES SHALLOW BREATHS AT NIGHT. IV FLUIDS ARE RUNNING. CHRONIC JI IS DRAINING PER GRAVITY. DO NOT PULL JI. CALL LIGHT WITHIN REACH. BED ALARM ON. THE PLAN IS TO GO BACK TO [facility] WHEN THEY HAVE A BED AVAILABLE AND TO MAINTAIN PAIN CONTROL.
--- NOTE | 2021-08-11 21:46 | NUR ---
CATHETER CARE DONE WITH READYCLEANSE WIPES, PT. TOLERATED WELL.
--- NOTE | 2021-08-11 22:30 | NUR ---
WITH ASSSESSMENT NOTED LEGS BILAT SIGNIFICANTLY SWOLLEN TO THE POINT THEY ARE TIGHT AND SKIN IS SHINY,PT SCREAMS WHEN TOUCHED OR EVEN BLANKET MOVED OVER LEGS. PENIS AND TESTICLES ARE ALSO SWOLLEN TIGHT.PT DOES NOT POINT TO OR COMMUNICATE THAT PAIN IS RELATED TO SURGERY AT THIS TIME, APPEARS MORE RELATED TO SWELLING.PT DRIFTS TO SLEEP WHEN UNDISTURBED, BUT WAKENS WITH C/O IF TOP COVERS SHIFTED.REFUSES REPOSITIONING.PT HAS ONLY SMALL OUTPUT IN JI BAG WHICH IS ALONSO ORANGE IN COLOR AND MINIMAL OUTPUT DURING DAY NOTED.I REVIEWED CHART FOR LABS,I/O,HOME MEDS.PT APPROX 2.5 L OVER NOTED.I CALLED DR LIANG AND RECEIVED ORDERS FOR LASIX 40 MG IV.
--- NOTE | 2021-08-11 23:04 | NUR ---
LASIX GIVEN PER ORDERS, ADVISED PT OF LASIX AND WHY IT IS BEING GIVEN AND POTENTIAL OUTCOME ALLOWING SWELLING TO GO DOWN SO HE COULD TOLERATE REPOSITIONING.
[2021-08-12 05:17] LABS: International Normalized Ratio 1.26
--- NOTE | 2021-08-12 05:58 | NUR ---
TRIED REPOSITIONING PT. A FEW TIMES DURING THE SHIFT, PT. SCREAMS & SQUEEZED MY ARM SO HARD, REFUSED TO BE TURNED RELATED TO PAIN. PRIMARY RN AWARE & ORDERED NOT TO TURN PT. UNTIL PAIN SUBSIDES.
--- NOTE | 2021-08-12 07:10 | NUR ---
SUMMARY 0630 PT HAS RESTED QUIETLY. ACKNOWLEDGES PAIN IMPROVED.THIS RN AND THERAPIST ASST Carlos Enrique JADE WERE ABLE TO REPOSITION PT.STILL HAS PAIN WITH REPOSITIONING, BUT ALLOWING AND HELPING SOME TO REACH FOR RAIL.ACKNOWLEDGES UNDERSTANDING WE NEED TO REPOSITION FOR SKIN CARE.PT HAD BM,AREA CLEANSED.HAS BUTTERFLY SHAPED AREA OF DISCOLORED AND DRY SKIN, PSORIASIS LIKE IN APPEARANCE WHICH ONCOMING RN AND THERAPIST ASST BOTH NOTED WAS PRESENT PREVIOUSLY AND I PLACED SKIN BARRIER CREAM,HOWEVER, WILL REQUEST POSSIBLE MEDICATED CREAM FOR THIS? PER DAY ROUNDING. I REMOVED MEPILEX WHICH WAS INTACT TO COCCYX AND NOTED FOUL ODORED DRNG AND SKIN WOUNDS UNDER THIS DRESSING.AREA CLEANSED AND FLOATING HIPS AT PRESENT.UNSURE IF MEPILEX REPLACEMENT WOULD BENEFIT PT OR MAKE WOUNDS WORSE. DAY RN AGREES TO FOLLOW UP.ALSO NOTED CHRONIC INDWELLING CATH APPEARS HAS BEEN WEARING TUNNEL WHERE CATH RESTS AT TIP OF PENIS.REPORT GIVEN PT RESTING MORE COMFORTABLY. ICE L HIP AND KNEE HIGHTEDS/PAS ON.
--- NOTE | 2021-08-12 18:07 | NUR ---
SHIFT SUMMARY POD2 L HIP PINNING, ALERT BUT CONFUSED, PT HAS HX OF DEMENTIA BUT HAS BEEN MORE CONFUSED TODAY. PT PRESENT THROUGHOUT MOST OF THE SHIFT AND PER HER REPORT HIS CONFUSION GETS WORSE AT TIMES. PT HAS BEEN COOPERATIVE WITH MOST CARE BUT HAS BEEN RESISTANT TO REPOSITIONING, ENCOURAGED AND EDUCATED ON IMPORTANCE ESPECIALLY c CURRENT STATE OF HIS COCCYX (PIC IN CHART). PT HAS NOT BEEN COMBATIVE BUT HAS BEEN FIRM IN PUSHING AWAY NURSING STAFF WHEN TRYING TO REPOSITION. COMMUNICATION BARRIER R/T PT BEING DEAF MAKES THINGS MORE COMPLICATED, PT ATTEMPTS TO HELP WHILE SHE IS HERE BUT IT APPEARS SHE IS HAVING TO REPEAT SOME OF THE INFORMATION WE ARE GIVING TO THEM WHEN RELAYING IT TO HIM. PT ROUTINELY STATES HE IS READY TO DISCHARGE BACK TO [facility] WHICH IS TENTATIVE FOR TOMORROW PENDING RELEASE BY [facility]THO AND HOSPITALIST. NO ACUTE EVENTS THIS SHIFT. CALL LIGHT IN REACH, WILL CTM.
[2021-08-13 04:21] LABS: International Normalized Ratio 1.55; Prothrombin Time Results 15.8 Sec (9.7-11.5)
--- NOTE | 2021-08-13 05:17 | NUR ---
SHIFT SUMMARY POD3 L HIP CLOSED REDUCTION WITH NAILING, AQUACEL DRESSING REMAIN CDI. PT HX DEMENTIA. PT CONFUSED INTERMITTENTLY. REFUSED TO TAKE HIS MEDS LAST NIGHT. HE SPIT UP HIS MEDS. PT WOULD REFUSE REPOSITIONING AT TIMES. SLEPT GOOD OVERNIGHT. FLUIDS INFUSING. PT HAD A BM THIS AM. FULL SPONGE BATH AND LINEN WERE CHANGED. JI CATH CARE. JI IN PLACED, PATENT, DRAINING, OFF FLOOR AND ON GRAVITY. URINE APPEARS TO BE DARK YELLOW. VSS. NON-VERBAL, DEAF AND USE SIGN LANGUAGE. CALL LIGHT ALEJANDRA ANDERS,. WILL CONTINUE TO MONITOR PT. AND WILL PROVIDE REPORT TO ONCOMING NURSE.
--- NOTE | 2021-08-13 10:59 | NUR ---
THERAPY: PT IN ROOM TO WORK WITH PATIENT. PT DID BED EXERCISES AND SAT ON EDGE OF BED. PT MAX ASSIST. SPOUSE AT BEDSIDE AND HELPFUL WITH COMMUNICATION. PT REPOSITIONED IN BED AFTER THERAPY. PT DENIES NEED FOR PAIN MEDICATION.
--- NOTE | 2021-08-13 18:37 | NUR ---
PT HAS BEEN ALERT, CONFUSED AT TIMES TODAY. PT COMMUNICATES POORLY WITH WRITING. SPOUSE ASSISTS WITH COMMUNICATING AND CARE. PT EATING AND DRINKING POORLY. CHRONIC JI DRAINING FRANCISCO URINE. CONT FLUIDS ORDERED. LOOSE BM TODAY. PT WORKED POORLY WITH THERAPY. MAX ASSIST TO SIT AT EDGE OF BED AND TURN. PT DENIES NORCO FOR PAIN. PT HAD TORADOL X2, EFFECTIVE. PAS AND TEDS TO BLE. AQUACEL TO LEFT HIP CDI. EDEMA TO BLE IMPROVING. PLAN FOR PLACEMENT AT OR.
--- NOTE | 2021-08-13 23:03 | NUR ---
NOTIFIED MD OF PT'S BLE EDEMA & LOW URINE OUTPUT OF FRANCISCO COLOR & THAT PT. WAS TAKING LASIX 40 MG AT HOME, TELEPHONE ORDER RECEIVED BY CN THAT MD IS NOT ORDERING ANYTHING AT THIS TIME & THAT TO PASS IT ON DAYSHIFT RN TO NOTIFY .
--- NOTE | 2021-08-14 04:07 | NUR ---
SHIFT SUMMARY: PT. IS DEAF BUT CAN READ LIPS & WRITING ON THE BOARD, UNDERSTANDS ACTIONS, COOPERATIVE WITH CARE, EXPRESSED BEING SAD DURING ROUNDS AT THE BEGINNING OF THE SHIFT, WHEN ASKED WHY, HE JUST MOVED HIS SHOULDERS. I REASSURED HIM THAT WE ARE HERE TO TAKE CARE OF HIM, PT. YARIELN SMILED & SAID THANK YOU THROUGH ACTION. NONPITTING EDEMA TO BLE, LOW URINE OUTPUT WITH FRANCISCO COLOR, MD KEY ACCOUNT REPRESENTATIVE NOTIFIED, ORDER RECEIVED TO PASS IT ON TO DAYSHIFT RN & MD. CATHETER CARE DONE WITH READYCLEANSE WIPES, PT. TOLERATED WELL. NO S/S OF RESP./CV DISTRESS. FREQUENT ROUNDING & REPOSITIONING DONE. PT. SLEEPING WELL. WILL CONTINUE TO MONITOR.
[2021-08-14 04:12] LABS: International Normalized Ratio 1.69; Prothrombin Time Results 17.1 Sec (9.7-11.5)
--- NOTE | 2021-08-14 05:46 | NUR ---
SKIN BARRIER CREAM APPLIED TO SARAL & COCCYX AREAS, MEPILEX TO COCCYX.
--- NOTE | 2021-08-14 10:34 | NUR ---
SON JOHNNIE CALLED TO GET AN UPDATE, HOWEVER HE WAS NOT ON THE LIST OF CONTACT INFORMATION FOR THIS PT. ASKED THE PT FOR PERMISSION IF HE WANTS ME TO TALK TO HIS SON, BUT PT REFUSED. THEREFORE, THIS RN TOLD THE SON THAT HE IS NOT ON THE LIST OF PERSON WHOM I CAN PROVIDE INFORMATION. PT SON VERY ANGRY ON THE PHONE. EXPLAINED THE POLICY OF NOT PROVIDING PT INFORMATION TO UNATHORIZED PERSON.
--- NOTE | 2021-08-14 17:04 | NUR ---
SHIFT SUMMARY PT IS AOX3, DEAF AT BASELINE AND USES BOARD TO COMMUNICATE. ABLE TO MAKE NEEDS KNOWN. PT MEDICATED FOR PAIN X1. Q2 TURN. BUTTOM IS RED WITH BEDSORE, MEPELEX APPLIED AND INTACT. AWAITS FOR PLACEMENT. BED IS IN THE LOWEST POSITION AND CALL LIGHT WITHIN REACH.
--- NOTE | 2021-08-15 03:11 | NUR ---
SHIFT SUMMARY: PT. ABLE TO MAKE SOME NEEDS KNOWN BY COMMUNICATING THROUGH ACTIONS & TALKS AT TIMES SUCH WHEN HE WAS WANTING THE PUPPY, PT. SAID IT & WITH A BARKING SOUND. RESPONDS TO QUESTIONS WRITTEN ON THE WHITE BOARD. DRINKS WATER EVERYTIME HE IS OFFERED. ROUNDING & TURNING PER PROTOCOL THEN PRN. CHRONIC BEDSORE TO COCCYX WITH MEPILEX ON, SKIN BARRIER CREAM APPLIED TO SACRAL AREA RELATED TO REDNESS. COMPLAINTS OF PAIN TO L HIP MEDICATED PER EMAR. CATHETER CARE DONE WITH READYCLEANSE WIPES, PT. TOLERATED WELL. JI CATH DRAINING FRANCISCO COLORED URINE VIA GRAVITY. MODERATE EDEMA TO BLE. BILATERAL HEELS WITH FOAM DRESSING PROTECTOR & FLOATED ON PILLOW. NO ACUTE CHANGES NOTED.
[2021-08-15 04:32] LABS: International Normalized Ratio 2.09; Prothrombin Time Results 20.9 Sec (9.7-11.5)
[2021-08-15 15:09] LABS: Influenza A, PCR NEGATIVE (NEGATIVE); Influenza B, PCR NEGATIVE (NEGATIVE); Resp Syncytial Virus, PCR NEGATIVE (NEGATIVE); SARS-Cov-2 (COVID-19) PCR, MMC NEGATIVE (NEGATIVE)
--- NOTE | 2021-08-15 15:38 | NUR ---
DISCHARGE SUMMARY PT A&O2-3, VSS/RA, JENNIFER PO, CHRONIC JI, BM+, PAIN MANAGED WITH NORCO 5 MG, NAPROXEN, COVID NEG. REPORT CALLED TO FRANCISCO AT [facility], INFORMED OF FU APPT WITH DR MEYER AND [facility]. PT LEFT WITH TRANSPORT BY [facility].
--- NOTE | 2021-08-15 15:43 | NUR ---
Per Dr. Harrison discharge appropriate. Patient does not oppose discharge. Patient discharged to Detention Facility: [facility] [address]. Updated notes/discharge orders emailed to Tere Desouza. Date of discharge: 08/15/2021 Date of admission: 08/06/2021 Transportation provided by: [facility] Contract Service DME Ordered: None needed. Follow-ups needed: [facility] will contact patient to schedule hospital follow-up visit. Reinforced need to attend follow-up with option of telehealth appointment. [facility] will coordinate follow-up visit due to transportation schedule. Provider/PCP: Dr. Mary Kate Roach When: WITHIN 1 WEEK Specialty: Orthopedic surgeon; patient has a follow-up with urology on 08/16/21 per Confirmed numbers: Spouse Indra text only [phone] Comment: Explained to patient to contact PCP if any questions regarding medication management, social service needs, and if condition worsens go to Urgent Care/ER (patient discharged to SNF). No barriers to discharge. Patient has a support network.
[2021-09-26] MEDS ORDERED: COLACE100 MG PO (21:38)
[2021-09-26] MEDS ORDERED: NYSTATIN15 GM TOP (21:39)
[2021-09-26] MEDS ORDERED: HYDROCODONE-AC1 EA17 PO (21:39)
[2021-09-26] MEDS ORDERED: ATOR20 PO (23:46)
[2021-09-26] MEDS ORDERED: KETO15TC TOP (23:52)
[2021-09-26] MEDS ORDERED: Norco 7.5-3251 EACH PO (23:57)
[2021-09-27] MEDS ORDERED: SENN187 PO (00:01)
[2021-09-27] MEDS ORDERED: LISI20 PO (12:29)
[2021-09-29] MEDS ORDERED: ENOXAPARIN150 MG/1 M SC (11:46)
== END 2021-08-15 15:37 | DRG 481 ==
LOC: ER 18:26 → SURS 21:20 → ER 22:20 → SURS 22:32
PROVIDERS: Emergency Medicine; Family Medicine; Orthopaedic Surgery; ADMIT Internal Medicine
PROC: 0QSC36Z Reposition Left Lower Femur with Intramedullary Internal Fixation Device, Percutaneous Approach (ICD-10-PCS; principal; 2021-08-10 13:30)
DX: S72.142A Displaced intertrochanteric fracture of left femur, initial encounter for closed fracture (principal); I48.92 Unspecified atrial flutter; Z20.822 Contact with and (suspected) exposure to COVID-19; R00.1 Bradycardia, unspecified; J44.9 Chronic obstructive pulmonary disease, unspecified; G40.909 Epilepsy, unspecified, not intractable, without status epilepticus; S50.312A Abrasion of left elbow, initial encounter; F03.90 Unspecified dementia, unspecified severity, without behavioral disturbance, psychotic disturbance, mood disturbance, and anxiety; E78.5 Hyperlipidemia, unspecified; I48.91 Unspecified atrial fibrillation; N40.1 Benign prostatic hyperplasia with lower urinary tract symptoms; R33.8 Other retention of urine; Z96.0 Presence of urogenital implants; M19.90 Unspecified osteoarthritis, unspecified site; R73.03 Prediabetes; Z96.619 Presence of unspecified artificial shoulder joint; I10 Essential (primary) hypertension; Z98.890 Other specified postprocedural states; Z79.01 Long term (current) use of anticoagulants; Z87.891 Personal history of nicotine dependence; Z79.82 Long term (current) use of aspirin; Z79.899 Other long term (current) drug therapy; W18.30XA Fall on same level, unspecified, initial encounter
CPT/HCPCS: 0241U; 36415; 73502; 80048; 80053; 82947; 83735; 85025; 85610; 85730; 94640; 94760; 94762; 96374; 97110; 97162; 97166; 97530; 99284-25; A9270; C1713; C1769; J0690; J1100; J1170; J1885; J1940; J2405; J2704; J3010; J3370; J7030; J7050; J7120

== ENCOUNTER 2021-08-23 11:29 | Emergency (ER) | payer OTHER ==
[~2021-08-23] VITALS: Ht 172.7 cm; Wt 90.7 kg
[~2021-08-23 11:29] MED LIST changes: +ATOR20 PO; -ATOR40TA PO; +Coumadin2 MG PO; -WARF2.5 PO
[2021-08-23] MEDS ORDERED: DOCU100 PO (14:23)
[2021-08-23] MEDS ORDERED: MIRALAX17 GM PO (14:23)
== END 2021-08-23 15:06 | disposition home or self-care (01) ==
LOC: ER 11:29
DX: L89.152 Pressure ulcer of sacral region, stage 2 (principal); K59.00 Constipation, unspecified; S72.002D Fracture of unspecified part of neck of left femur, subsequent encounter for closed fracture with routine healing; J44.9 Chronic obstructive pulmonary disease, unspecified; K21.9 Gastro-esophageal reflux disease without esophagitis; E78.00 Pure hypercholesterolemia, unspecified; Z79.899 Other long term (current) drug therapy; X58.XXXD Exposure to other specified factors, subsequent encounter
CPT/HCPCS: 73502; 99283-25

== ENCOUNTER → 2022-02-17 | Outpatient (CLI) | payer OTHER ==
[~2022-02-17] MED LIST changes: +ATOR40TA PO; +COLACE100 MG PO; -Coumadin2 MG PO; +ENOXAPARIN150 MG/1 M SC; +HYDROCODONE-AC1 EA17 PO; +KETO15TC TOP; +MIRALAX17 GM PO; +NYSTATIN15 GM TOP; +Norco 7.5-3251 EACH PO; +SENN187 PO; +WARF2.5 PO
[2022-02-17 16:45] LABS: Source, Urine Foley catheter
[2022-02-17 17:44] LABS: Appearance, Urine Hazy (Clear); Bilirubin, Urine Neg (Neg); Blood, Urine 4+ (Neg); Glucose Qualitative, Urine Neg (Neg); Ketones, Urine Neg (Neg); Leukocyte Esterase, Urine 3+ (Neg); Nitrite, Urine Neg (Neg); Protein, Urine 3+ (Neg); Urobilinogen, Urine NORM (Normal)
[2022-02-17 17:56] LABS: Color, Urine Pale Yellow (P-Yellow)
[2022-02-17 17:57] LABS: Bacteria Mod /hpf; Granular Casts 0-2 /lpf (0); Hyaline Casts 0-2 /lpf (0-2); Renal Epithelial Rare /hpf (0-Rare); Squamous Epithelial Cells Few /hpf (Few); White Blood Cells, Urine 25-50 /hpf (0-5)
== END | disposition home or self-care (01) ==
LOC: LAB HH 16:41
PROVIDERS: Family Medicine
DX: N39.0 Urinary tract infection, site not specified (principal)
CPT/HCPCS: 81001; 87077; 87086; 87186